=== PATIENT | male | born 1975 | race Caucasian/White ===

== ENCOUNTER 2016-11-06 16:12 | Emergency (ER) | payer MEDICAID ==
[~2016-11-06] VITALS: Ht 185.4 cm; Wt 38.2 kg
[~2016-11-06 16:12] MED LIST: DIVA500T35 PO; FLUP10 PO; TRIH5TAB2 PO
[2016-11-06] MEDS ORDERED: TRIHEXYPHENIDYL HCL 5 MG TABLET PO ONE (19:30)
[2016-11-06] MEDS ORDERED: FluPHENAZine HCL 10 MG TABLET PO ONE (19:30)
[2016-11-06] MEDS ORDERED: FluPHENAZine HCL 5 MG TABLET PO ONE (19:30)
[2016-11-06 19:52] VITALS: BP 118/76
== END 2016-11-06 19:56 | disposition home or self-care (01) ==
LOC: EEVIPCON 16:12 → EMS 16:14
DX: F20.9 Schizophrenia, unspecified (principal); F31.9 Bipolar disorder, unspecified; F41.9 Anxiety disorder, unspecified; F17.210 Nicotine dependence, cigarettes, uncomplicated; Z76.0 Encounter for issue of repeat prescription
CPT/HCPCS: 99283

== ENCOUNTER 2016-11-20 14:08 | Inpatient (IN) | payer MEDICAID ==
[~2016-11-20] VITALS: Ht 185.4 cm; Wt 86.8 kg
[~2016-11-20 14:08] MED LIST changes: -DIVA500T35 PO
[2016-11-20] MEDS ORDERED: HALOPERIDOL 5 MG TABLET PO PRN (17:00)
[2016-11-20] MEDS ORDERED: -PHARMACY VACCINE NOTE- MISC ONE ×2 (18:15)
[2016-11-20] MEDS: TRIHEXYPHENIDYL HCL 2 MG TABLET PO SCH (18:26)
[2016-11-20] MEDS: LORazepam 2 MG TABLET PO PRN (18:26)
[2016-11-20 18:33] VITALS: BP 143/75
[2016-11-20 19:21] VITALS: BP 120/72
[2016-11-20] MEDS: FluPHENAZine HCL 10 MG TABLET PO SCH (20:35)
[2016-11-21 06:43] VITALS: BP 125/83
[2016-11-21 08:16] VITALS: BP 137/69
[2016-11-21 08:46] LABS: BASOPHILS % (AUTO) 0.7 % (0.0-2.0); EOSINOPHILS % (AUTO) 3.3 % (1.0-6.0); HEMATOCRIT 43.7 % (41-53); HEMOGLOBIN 14.1 g/dL (13.5-17.5); LYMPHOCYTES # (AUTO) 1.8 K/uL (1.0-4.8); LYMPHOCYTES % (AUTO) 30.7 % (22.0-44.0); MEAN CORPUSCULAR HEMOGLOBIN 29.4 pg (26.0-34.0); MEAN CORPUSCULAR HGB CONC 32.4 G/dL (31.0-37.0); MEAN CORPUSCULAR VOLUME 91 fL (80-100); MONOCYTES # (AUTO) 0.3 K/uL (0.1-1.0); MONOCYTES % (AUTO) 5.5 % (2.0-9.0); NEUTROPHILS # (AUTO) 3.5 K/uL (1.8-7.7); NEUTROPHILS % (AUTO) 59.8 % (40.0-70.0); PLATELET COUNT (AUTO) 180 K/uL (150-450); RED BLOOD CELL COUNT(AUTO) 4.81 MIL/uL (4.50-5.90); RED CELL DISTRIBUTION WIDTH 13.6 % (11.5-14.5); WHITE BLOOD COUNT (AUTO) 5.9 K/uL (4.5-11.0)
[2016-11-21 09:24] LABS: HEMOGLOBIN A1C 5.4 % (4.5-6.2)
[2016-11-21 09:46] LABS: ALANINE AMINOTRANSFERASE 25 U/L (12-78); ALBUMIN 3.6 g/dL (3.4-5.0); ANION GAP 7 mmol/L (8-16); ASPARTATE AMINOTRANSFERASE 23 U/L (15-37); BILIRUBIN,TOTAL 0.5 mg/dL (0.1-1.0); CALCIUM, TOTAL 8.6 mg/dL (8.8-10.5); CARBON DIOXIDE 30 mmol/L (22-29); CHLORIDE 107 mmol/L (98-107); CHOL/HDL RATIO 2.9 (4.2-7.3); CREATININE 0.99 mg/dL (0.60-1.30); GLOMERULAR FILTR. RATE CALC > 60 mL/min (>60); POTASSIUM 4.6 mmol/L (3.5-5.1); SODIUM SERUM 144 mmol/L (136-145); THYROID STIMULATING HORMONE 0.49 uIU/mL (0.36-3.74); TOTAL PROTEIN, SERUM 6.7 g/dL (6.4-8.2); UREA NITROGEN, BLOOD 18 mg/dL (7-18)
[2016-11-21] MEDS: TRIHEXYPHENIDYL HCL 2 MG TABLET PO SCH ×2 (09:46→16:58)
[2016-11-21] MEDS: LORazepam 2 MG TABLET PO PRN ×2 (09:46→16:58)
[2016-11-21 11:35] LABS: APPEARANCE,URINE CLOUDY (CLEAR)
[2016-11-21 11:36] LABS: ADD UA MICROSCOPIC YES; GLUCOSE, URINE (UA) NEGATIVE (NEGATIVE); KETONES,URINE TRACE mg/dL (NEGATIVE); LEUKOCYTE ESTERASE ,URINE NEGATIVE (NEGATIVE); OCCULT BLOOD,URINE NEGATIVE (NEGATIVE); PH,URINE 5.5 (5.0-8.0); PROTEIN,URINE NEGATIVE (NEGATIVE)
[2016-11-21 11:39] LABS: RBC,URINE None Seen /HPF (0-2); WBC,URINE 0-2 /HPF (0-5)
[2016-11-21 11:41] LABS: AMORPHOUS SEDIMENT,UR Many /LPF (None Seen); CALCIUM OXALATE CRYSTALS,UR Few /LPF (None Seen)
[2016-11-21 16:00] VITALS: BP 124/76
[2016-11-21] MEDS: ZOLPIDEM TARTRATE 10 MG TABLET PO PRN (20:22)
[2016-11-21] MEDS: FluPHENAZine HCL 10 MG TABLET PO SCH (20:22)
[2016-11-22 06:46] VITALS: BP 126/70
[2016-11-22 08:40] VITALS: BP 131/80
[2016-11-22] MEDS: TRIHEXYPHENIDYL HCL 2 MG TABLET PO SCH ×2 (10:05→17:06)
[2016-11-22 16:00] VITALS: BP 125/71
[2016-11-22] MEDS: ZOLPIDEM TARTRATE 10 MG TABLET PO PRN (20:49)
[2016-11-22] MEDS: FluPHENAZine HCL 10 MG TABLET PO SCH (20:49)
[2016-11-22] MEDS: LORazepam 2 MG TABLET PO PRN (20:49)
[2016-11-23 08:30] VITALS: BP 104/64
[2016-11-23] MEDS: TRIHEXYPHENIDYL HCL 2 MG TABLET PO SCH (09:39)
== END 2016-11-23 11:40 | disposition home or self-care (01) | DRG 750 ==
LOC: B3A 16:51 → EDSTATUS 18:01
DX: F25.1 Schizoaffective disorder, depressive type (principal); R45.851 Suicidal ideations; E55.9 Vitamin D deficiency, unspecified; J44.9 Chronic obstructive pulmonary disease, unspecified; K59.00 Constipation, unspecified; F17.210 Nicotine dependence, cigarettes, uncomplicated; Z71.6 Tobacco abuse counseling; Z72.89 Other problems related to lifestyle; Z71.41 Alcohol abuse counseling and surveillance of alcoholic
CPT/HCPCS: 83036; 84439; 84443

== ENCOUNTER 2016-11-27 12:52 | Inpatient (IN) | payer MEDICAID ==
[~2016-11-27 12:52] MED LIST changes: +TRIH5 PO; -TRIH5TAB2 PO
[2016-11-27] MEDS ORDERED: HALOPERIDOL 5 MG TABLET PO PRN (13:30)
[2016-11-27] MEDS ORDERED: ZOLPIDEM TARTRATE 10 MG TABLET PO PRN (13:30)
[2016-11-27 16:13] VITALS: BP 125/69
[2016-11-27] MEDS: FluPHENAZine HCL 10 MG TABLET PO SCH (16:29)
[2016-11-27] MEDS: TRIHEXYPHENIDYL HCL 2 MG TABLET PO SCH (18:04)
[2016-11-27] MEDS ORDERED: LORazepam 2 MG/ML VIAL IM ONE (19:45)
[2016-11-27] MEDS ORDERED: HALOPERIDOL LACTATE 5 MG/ML VIAL IM ONE (19:45)
[2016-11-27] MEDS ORDERED: DiphenhydrAMINE HCL 50 MG/ML VIAL IM ONE (19:45)
[2016-11-27] MEDS: MAG HYDROX/AL HYDROX/SIMETH ES 30 ML SUSPENSION UDCUP PO PRN (20:10)
[2016-11-27 20:23] VITALS: BP 113/65
[2016-11-27] MEDS ORDERED: FluPHENAZine HCL 10 MG TABLET PO SCH (21:00)
[2016-11-27] MEDS ORDERED: TRIHEXYPHENIDYL HCL 2 MG TABLET PO SCH (21:00)
[2016-11-28 07:19] VITALS: BP 118/65
[2016-11-28 08:31] VITALS: BP 112/75
[2016-11-28] MEDS: FluPHENAZine HCL 10 MG TABLET PO SCH ×3 (09:00→17:00)
[2016-11-28] MEDS: TRIHEXYPHENIDYL HCL 2 MG TABLET PO SCH ×2 (09:29→17:00)
[2016-11-28] MEDS ORDERED: ALBUTEROL SULFATE HFA 90 MCG/PUFF 8 GM INHALER IH PRN (10:45)
[2016-11-28] MEDS ORDERED: MAG HYDROX/AL HYDROX/SIMETH ES 30 ML SUSPENSION UDCUP PO PRN (10:45)
[2016-11-28] MEDS ORDERED: BACITRACIN 28.4 GM OINTMENT TP PRN (10:45)
[2016-11-28] MEDS ORDERED: CloNIDine HCL 0.1 MG TABLET PO PRN (10:45)
[2016-11-28] MEDS ORDERED: LOPERAMIDE HCL 2 MG CAPSULE PO PRN (10:45)
[2016-11-28] MEDS ORDERED: MAGNESIUM HYDROXIDE SUSPENSION 30 ML UDCUP PO PRN (10:45)
[2016-11-28] MEDS ORDERED: ACETAMINOPHEN 325 MG TABLET PO PRN (10:45)
[2016-11-28] MEDS ORDERED: ONDANSETRON HCL 4 MG TABLET PO PRN (10:45)
[2016-11-28] MEDS ORDERED: PETROLATUM,WHITE 71 GM JELLY TP PRN (10:45)
[2016-11-28] MEDS ORDERED: BENZOCAINE/MENTHOL LOZENGE MM PRN (10:45)
[2016-11-28] MEDS: IBUPROFEN 600 MG TABLET PO PRN (11:03)
[2016-11-28] MEDS: LORazepam 2 MG TABLET PO PRN (11:04)
[2016-11-28] MEDS: MAG HYDROX/AL HYDROX/SIMETH ES 30 ML SUSPENSION UDCUP PO PRN (11:04)
[2016-11-28] MEDS ORDERED: DiphenhydrAMINE HCL 25 MG CAPSULE PO PRN (18:15)
[2016-11-29 08:22] VITALS: BP 112/73
[2016-11-29] MEDS: FluPHENAZine HCL 10 MG TABLET PO SCH ×2 (09:00→17:00)
[2016-11-29] MEDS: IBUPROFEN 600 MG TABLET PO PRN ×2 (09:19→17:26)
[2016-11-29] MEDS: TRIHEXYPHENIDYL HCL 2 MG TABLET PO SCH ×2 (09:19→17:25)
[2016-11-29] MEDS: LORazepam 2 MG TABLET PO PRN ×3 (09:19→21:32)
[2016-11-29 09:24] VITALS: BP 129/68
[2016-11-29 10:24] VITALS: BP 116/72
[2016-11-30] MEDS: TRIHEXYPHENIDYL HCL 2 MG TABLET PO SCH (08:13)
[2016-11-30 08:20] LABS: BASOPHILS % (AUTO) 0.5 % (0.0-2.0); EOSINOPHILS % (AUTO) 3.2 % (1.0-6.0); HEMATOCRIT 40.6 % (41-53); HEMOGLOBIN 13.2 g/dL (13.5-17.5); LYMPHOCYTES # (AUTO) 1.7 K/uL (1.0-4.8); LYMPHOCYTES % (AUTO) 28.1 % (22.0-44.0); MEAN CORPUSCULAR HEMOGLOBIN 29.6 pg (26.0-34.0); MEAN CORPUSCULAR HGB CONC 32.6 G/dL (31.0-37.0); MEAN CORPUSCULAR VOLUME 91 fL (80-100); MONOCYTES # (AUTO) 0.4 K/uL (0.1-1.0); MONOCYTES % (AUTO) 6.9 % (2.0-9.0); NEUTROPHILS # (AUTO) 3.7 K/uL (1.8-7.7); NEUTROPHILS % (AUTO) 61.3 % (40.0-70.0); PLATELET COUNT (AUTO) 154 K/uL (150-450); RED BLOOD CELL COUNT(AUTO) 4.46 MIL/uL (4.50-5.90); RED CELL DISTRIBUTION WIDTH 13.5 % (11.5-14.5)
[2016-11-30 08:36] LABS: HEMOGLOBIN A1C 5.3 % (4.5-6.2)
[2016-11-30 08:56] LABS: ALANINE AMINOTRANSFERASE 48 U/L (12-78); ALBUMIN 3.3 g/dL (3.4-5.0); ANION GAP 7 mmol/L (8-16); ASPARTATE AMINOTRANSFERASE 34 U/L (15-37); BILIRUBIN,TOTAL 0.3 mg/dL (0.1-1.0); CALCIUM, TOTAL 7.7 mg/dL (8.8-10.5); CARBON DIOXIDE 28 mmol/L (22-29); CHLORIDE 107 mmol/L (98-107); CHOL/HDL RATIO 3.4 (4.2-7.3); CREATININE 0.82 mg/dL (0.60-1.30); GLOMERULAR FILTR. RATE CALC > 60 mL/min (>60); POTASSIUM 4.6 mmol/L (3.5-5.1); SODIUM SERUM 142 mmol/L (136-145); THYROID STIMULATING HORMONE 0.66 uIU/mL (0.36-3.74); TOTAL PROTEIN, SERUM 5.9 g/dL (6.4-8.2); UREA NITROGEN, BLOOD 21 mg/dL (7-18)
[2016-11-30] MEDS: FluPHENAZine HCL 10 MG TABLET PO SCH (09:00)
== END 2016-11-30 14:00 | disposition home or self-care (01) | DRG 750 ==
LOC: B3A 13:24
PROVIDERS: ADMIT Psychiatry & Neurology Psychiatry; ATTEND Psychiatry & Neurology Psychiatry
DX: F20.0 Paranoid schizophrenia (principal); E55.9 Vitamin D deficiency, unspecified; F15.10 Other stimulant abuse, uncomplicated; J44.9 Chronic obstructive pulmonary disease, unspecified; F19.10 Other psychoactive substance abuse, uncomplicated; K59.00 Constipation, unspecified; F17.210 Nicotine dependence, cigarettes, uncomplicated; Z71.6 Tobacco abuse counseling; Z79.899 Other long term (current) drug therapy
CPT/HCPCS: 83036; 84439; 84443; J1200; J1630; J2060

== ENCOUNTER 2016-12-05 20:14 | Inpatient (IN) | payer MEDICAID ==
[~2016-12-05] VITALS: Ht 185.4 cm; Wt 84.3 kg
[~2016-12-05 20:14] MED LIST changes: -TRIH5 PO; +TRIH5TAB2 PO
[2016-12-05] MEDS ORDERED: HALOPERIDOL 5 MG TABLET PO PRN (20:45)
[2016-12-05 21:00] VITALS: BP 123/68
[2016-12-05 21:15] VITALS: BP 119/87
[2016-12-05] MEDS ORDERED: IBUPROFEN 600 MG TABLET PO PRN (21:30)
[2016-12-05] MEDS: TRIHEXYPHENIDYL HCL 2 MG TABLET PO SCH (21:35)
[2016-12-05] MEDS: FluPHENAZine HCL 10 MG TABLET PO SCH (21:35)
[2016-12-05] MEDS: ZOLPIDEM TARTRATE 10 MG TABLET PO PRN (21:36)
[2016-12-05] MEDS: LORazepam 2 MG TABLET PO PRN (21:36)
[2016-12-06 02:36] VITALS: BP 112/83
[2016-12-06] MEDS ORDERED: BACITRACIN 28.4 GM OINTMENT TP PRN (08:00)
[2016-12-06] MEDS ORDERED: ALBUTEROL SULFATE HFA 90 MCG/PUFF 8 GM INHALER IH PRN (08:00)
[2016-12-06] MEDS ORDERED: ONDANSETRON HCL 4 MG TABLET PO PRN (08:00)
[2016-12-06] MEDS ORDERED: LOPERAMIDE HCL 2 MG CAPSULE PO PRN (08:00)
[2016-12-06] MEDS ORDERED: BENZOCAINE/MENTHOL LOZENGE MM PRN (08:00)
[2016-12-06] MEDS ORDERED: MAG HYDROX/AL HYDROX/SIMETH ES 30 ML SUSPENSION UDCUP PO PRN (08:00)
[2016-12-06] MEDS ORDERED: ACETAMINOPHEN 325 MG TABLET PO PRN (08:00)
[2016-12-06] MEDS ORDERED: CloNIDine HCL 0.1 MG TABLET PO PRN (08:00)
[2016-12-06] MEDS ORDERED: PETROLATUM,WHITE 71 GM JELLY TP PRN (08:00)
[2016-12-06] MEDS ORDERED: MAGNESIUM HYDROXIDE SUSPENSION 30 ML UDCUP PO PRN (08:00)
[2016-12-06] MEDS ORDERED: TraMADol HCL 50 MG TABLET PO PRN (08:15)
[2016-12-06 08:31] VITALS: BP 122/81
[2016-12-06 08:39] LABS: APPEARANCE,URINE TURBID (CLEAR); GLUCOSE, URINE (UA) NEGATIVE (NEGATIVE); KETONES,URINE NEGATIVE (NEGATIVE); LEUKOCYTE ESTERASE ,URINE TRACE (NEGATIVE); OCCULT BLOOD,URINE NEGATIVE (NEGATIVE); PH,URINE 5.5 (5.0-8.0); PROTEIN,URINE NEGATIVE (NEGATIVE)
[2016-12-06 08:51] LABS: ADD UA MICROSCOPIC YES
[2016-12-06] MEDS: SULFAMETHOX/TRIMETH DS 800-160 MG/TABLET PO SCH ×2 (08:51→16:17)
[2016-12-06] MEDS: LORazepam 2 MG TABLET PO PRN ×2 (08:52→16:17)
[2016-12-06] MEDS: TRIHEXYPHENIDYL HCL 2 MG TABLET PO SCH ×2 (08:52→16:17)
[2016-12-06] MEDS: FluPHENAZine HCL 10 MG TABLET PO SCH ×2 (08:52→16:17)
[2016-12-06 08:55] LABS: AMORPHOUS SEDIMENT,UR Many /LPF (None Seen); RBC,URINE None Seen /HPF (0-2); SQUAMOUS EPITHELIAL CELL,UR Rare /LPF (None Seen); WBC,URINE 0-2 /HPF (0-5)
[2016-12-06] MEDS: CHOLECALCIFEROL (VIT D3) 1,000 UNITS TABLET PO SCH (08:57)
[2016-12-06] MEDS ORDERED: CEPHALEXIN MONOHYDRATE 500 MG CAPSULE PO SCH ×2 (09:00)
[2016-12-06] MEDS: CEPHALEXIN MONOHYDRATE 500 MG CAPSULE PO SCH ×2 (12:26→16:17)
[2016-12-06] MEDS: IBUPROFEN 600 MG TABLET PO PRN (12:28)
[2016-12-07 08:23] VITALS: BP 113/72
[2016-12-07 08:51] LABS: BASOPHILS % (AUTO) 0.6 % (0.0-2.0); HEMATOCRIT 40.9 % (41-53); HEMOGLOBIN 13.2 g/dL (13.5-17.5); LYMPHOCYTES # (AUTO) 1.7 K/uL (1.0-4.8); LYMPHOCYTES % (AUTO) 26.4 % (22.0-44.0); MEAN CORPUSCULAR HEMOGLOBIN 29.5 pg (26.0-34.0); MEAN CORPUSCULAR HGB CONC 32.2 G/dL (31.0-37.0); MEAN CORPUSCULAR VOLUME 91 fL (80-100); MONOCYTES # (AUTO) 0.3 K/uL (0.1-1.0); MONOCYTES % (AUTO) 5.5 % (2.0-9.0); NEUTROPHILS # (AUTO) 4.1 K/uL (1.8-7.7); NEUTROPHILS % (AUTO) 64.5 % (40.0-70.0); PLATELET COUNT (AUTO) 165 K/uL (150-450); RED BLOOD CELL COUNT(AUTO) 4.47 MIL/uL (4.50-5.90); RED CELL DISTRIBUTION WIDTH 12.7 % (11.5-14.5); WHITE BLOOD COUNT (AUTO) 6.3 K/uL (4.5-11.0)
[2016-12-07] MEDS: TRIHEXYPHENIDYL HCL 2 MG TABLET PO SCH ×2 (09:18→17:06)
[2016-12-07] MEDS: CEPHALEXIN MONOHYDRATE 500 MG CAPSULE PO SCH ×3 (09:18→16:39)
[2016-12-07] MEDS: FluPHENAZine HCL 10 MG TABLET PO SCH ×2 (09:18→16:39)
[2016-12-07] MEDS: IBUPROFEN 600 MG TABLET PO PRN (09:18)
[2016-12-07] MEDS: SULFAMETHOX/TRIMETH DS 800-160 MG/TABLET PO SCH ×2 (09:18→16:39)
[2016-12-07] MEDS: LORazepam 2 MG TABLET PO PRN ×2 (09:18→18:26)
[2016-12-07] MEDS: CHOLECALCIFEROL (VIT D3) 1,000 UNITS TABLET PO SCH (09:18)
[2016-12-07 09:42] LABS: HEMOGLOBIN A1C 5.4 % (4.5-6.2)
[2016-12-07 09:55] LABS: ALANINE AMINOTRANSFERASE 28 U/L (12-78); ALBUMIN 3.1 g/dL (3.4-5.0); ANION GAP 7 mmol/L (8-16); ASPARTATE AMINOTRANSFERASE 19 U/L (15-37); BILIRUBIN,TOTAL 0.3 mg/dL (0.1-1.0); CALCIUM, TOTAL 7.7 mg/dL (8.8-10.5); CARBON DIOXIDE 27 mmol/L (22-29); CHLORIDE 109 mmol/L (98-107); CHOL/HDL RATIO 3.4 (4.2-7.3); CREATININE 1.02 mg/dL (0.60-1.30); GLOMERULAR FILTR. RATE CALC > 60 mL/min (>60); POTASSIUM 3.9 mmol/L (3.5-5.1); SODIUM SERUM 143 mmol/L (136-145); THYROID STIMULATING HORMONE 0.27 uIU/mL (0.36-3.74); TOTAL PROTEIN, SERUM 5.8 g/dL (6.4-8.2); UREA NITROGEN, BLOOD 15 mg/dL (7-18)
[2016-12-07 16:00] VITALS: BP 137/71
[2016-12-07] MEDS: ZOLPIDEM TARTRATE 10 MG TABLET PO PRN (20:14)
[2016-12-08] MEDS: CEPHALEXIN MONOHYDRATE 500 MG CAPSULE PO SCH ×3 (08:56→16:41)
[2016-12-08] MEDS: FluPHENAZine HCL 10 MG TABLET PO SCH ×2 (08:56→16:41)
[2016-12-08] MEDS: CHOLECALCIFEROL (VIT D3) 1,000 UNITS TABLET PO SCH (08:56)
[2016-12-08] MEDS: TRIHEXYPHENIDYL HCL 2 MG TABLET PO SCH ×2 (08:56→16:41)
[2016-12-08] MEDS: SULFAMETHOX/TRIMETH DS 800-160 MG/TABLET PO SCH ×2 (08:56→16:41)
[2016-12-08] MEDS: LORazepam 2 MG TABLET PO PRN ×2 (08:56→16:41)
[2016-12-09 06:10] VITALS: BP 129/68
[2016-12-09] MEDS: CHOLECALCIFEROL (VIT D3) 1,000 UNITS TABLET PO SCH (09:14)
[2016-12-09] MEDS: SULFAMETHOX/TRIMETH DS 800-160 MG/TABLET PO SCH ×2 (09:14→17:15)
[2016-12-09] MEDS: LORazepam 2 MG TABLET PO PRN ×3 (09:14→21:16)
[2016-12-09] MEDS: FluPHENAZine HCL 10 MG TABLET PO SCH ×2 (09:14→17:14)
[2016-12-09] MEDS: CEPHALEXIN MONOHYDRATE 500 MG CAPSULE PO SCH ×3 (09:15→17:15)
[2016-12-09] MEDS: TRIHEXYPHENIDYL HCL 2 MG TABLET PO SCH ×2 (09:15→17:14)
[2016-12-09 16:04] VITALS: BP 134/87
[2016-12-09] MEDS: IBUPROFEN 600 MG TABLET PO PRN (17:15)
[2016-12-09] MEDS: ZOLPIDEM TARTRATE 10 MG TABLET PO PRN (21:16)
[2016-12-10] MEDS: CEPHALEXIN MONOHYDRATE 500 MG CAPSULE PO SCH ×2 (08:52→12:45)
[2016-12-10] MEDS: CHOLECALCIFEROL (VIT D3) 1,000 UNITS TABLET PO SCH (08:52)
[2016-12-10] MEDS: FluPHENAZine HCL 10 MG TABLET PO SCH (08:52)
[2016-12-10] MEDS: SULFAMETHOX/TRIMETH DS 800-160 MG/TABLET PO SCH (08:52)
[2016-12-10] MEDS: TRIHEXYPHENIDYL HCL 2 MG TABLET PO SCH (08:52)
[2016-12-10 09:24] VITALS: BP 135/81
[2016-12-10] MEDS: IBUPROFEN 600 MG TABLET PO PRN (09:27)
[2016-12-10] MEDS ORDERED: VITAD1000 PO (10:36)
[2016-12-10] MEDS ORDERED: SULF1TAB42 PO (10:37)
[2016-12-10] MEDS ORDERED: CEPH500 PO (10:37)
== END 2016-12-10 12:47 | disposition home or self-care (01) | DRG 750 ==
LOC: B3A 20:40 → EDSTATUS 20:44
PROVIDERS: ADMIT Psychiatry & Neurology Psychiatry; ATTEND Psychiatry & Neurology Psychiatry
DX: F20.0 Paranoid schizophrenia (principal); E55.9 Vitamin D deficiency, unspecified; F25.9 Schizoaffective disorder, unspecified; J44.9 Chronic obstructive pulmonary disease, unspecified; K59.00 Constipation, unspecified; F15.90 Other stimulant use, unspecified, uncomplicated; F17.200 Nicotine dependence, unspecified, uncomplicated; L03.113 Cellulitis of right upper limb; K21.9 Gastro-esophageal reflux disease without esophagitis; Z71.6 Tobacco abuse counseling; Z71.51 Drug abuse counseling and surveillance of drug abuser
CPT/HCPCS: 80307; 83036; 84439; 84443; 86592; 87081

== ENCOUNTER 2016-12-19 14:49 | Emergency (ER) | payer MEDICAID ==
[~2016-12-19] VITALS: Ht 182.9 cm; Wt 81.8 kg
[~2016-12-19 14:49] MED LIST changes: +CEPH500 PO; +SULF1TAB42 PO; +VITAD1000 PO
[2016-12-19] MEDS ORDERED: DIPH25 PO (15:16)
[2016-12-19] MEDS ORDERED: TRIHEXYPHENIDYL HCL 5 MG TABLET PO ONE (16:45)
[2016-12-19] MEDS ORDERED: FluPHENAZine HCL 10 MG TABLET PO ONE (16:45)
[2016-12-19 17:19] VITALS: BP 128/68
== END 2016-12-19 17:20 | disposition home or self-care (01) ==
LOC: EMS 14:51
DX: Z76.0 Encounter for issue of repeat prescription (principal); F20.9 Schizophrenia, unspecified; F41.9 Anxiety disorder, unspecified; F31.9 Bipolar disorder, unspecified; F17.210 Nicotine dependence, cigarettes, uncomplicated
CPT/HCPCS: 99284

== ENCOUNTER 2017-01-22 02:42 | Inpatient (IN) | payer SELFPAY ==
[~2017-01-22] VITALS: Ht 185.4 cm; Wt 82.0 kg
[~2017-01-22 02:42] MED LIST changes: -CEPH500 PO; +DIPH25 PO; -SULF1TAB42 PO; -VITAD1000 PO
[2017-01-22 03:30] VITALS: BP 118/64
[2017-01-22 06:12] LABS: BASOPHILS # (AUTO) 0.06 K/uL (0.00-0.20); BASOPHILS % (AUTO) 0.9 % (0.0-2.0); EOSINOPHILS # (AUTO) 0.21 K/uL (0.00-0.70); EOSINOPHILS % (AUTO) 2.84 % (1.0-6.0); HEMATOCRIT 44.1 % (41-53); HEMOGLOBIN 14.4 g/dL (13.5-17.5); LYMPHOCYTES % (AUTO) 27.6 % (22.0-44.0); MEAN CORPUSCULAR HEMOGLOBIN 29.7 pg (26.0-34.0); MEAN CORPUSCULAR HGB CONC 32.6 G/dL (31.0-37.0); MEAN CORPUSCULAR VOLUME 91 fL (80-100); MONOCYTES # (AUTO) 0.6 K/uL (0.1-1.0); MONOCYTES % (AUTO) 7.9 % (2.0-9.0); NEUTROPHILS # (AUTO) 4.5 K/uL (1.8-7.7); NEUTROPHILS % (AUTO) 60.8 % (40.0-70.0); PLATELET COUNT (AUTO) 168 K/uL (150-450); RED BLOOD CELL COUNT(AUTO) 4.84 MIL/uL (4.50-5.90); RED CELL DISTRIBUTION WIDTH 13.2 % (11.5-14.5); WHITE BLOOD COUNT (AUTO) 7.4 K/uL (4.5-11.0)
[2017-01-22 06:22] LABS: ANION GAP 4 mmol/L (8-16); CALCIUM, TOTAL 8.9 mg/dL (8.8-10.5); CARBON DIOXIDE 34 mmol/L (22-29); CHLORIDE 104 mmol/L (98-107); GLOMERULAR FILTR. RATE CALC > 60 mL/min (>60); POTASSIUM 4.8 mmol/L (3.5-5.1); SODIUM SERUM 142 mmol/L (136-145); UREA NITROGEN, BLOOD 13 mg/dL (7-18)
[2017-01-22 06:28] LABS: ALANINE AMINOTRANSFERASE 25 U/L (12-78); ASPARTATE AMINOTRANSFERASE 19 U/L (15-37); BILIRUBIN,TOTAL 0.3 mg/dL (0.1-1.0); TOTAL PROTEIN, SERUM 7.2 g/dL (6.4-8.2)
[2017-01-22 08:02] LABS: APPEARANCE,URINE CLEAR (CLEAR); GLUCOSE, URINE (UA) NEGATIVE (NEGATIVE); KETONES,URINE NEGATIVE (NEGATIVE); LEUKOCYTE ESTERASE ,URINE NEGATIVE (NEGATIVE); OCCULT BLOOD,URINE NEGATIVE (NEGATIVE); PH,URINE 6.5 (5.0-8.0); PROTEIN,URINE NEGATIVE (NEGATIVE)
[2017-01-22 08:10] LABS: ADD UA MICROSCOPIC NO
[2017-01-22 15:12] VITALS: BP 130/70
[2017-01-22 16:00] VITALS: BP 134/77
[2017-01-22] MEDS ORDERED: LORazepam 2 MG TABLET PO PRN (18:30)
[2017-01-22] MEDS ORDERED: HALOPERIDOL 5 MG TABLET PO PRN (18:30)
[2017-01-22] MEDS ORDERED: ZOLPIDEM TARTRATE 10 MG TABLET PO PRN (18:30)
[2017-01-22] MEDS ORDERED: LORazepam 2 MG/ML VIAL ONE (18:31)
[2017-01-22] MEDS ORDERED: FluPHENAZine HCL 2.5 MG/ML INJ IM ONE ×2 (18:31→18:45)
[2017-01-22] MEDS ORDERED: DiphenhydrAMINE HCL 50 MG/ML VIAL ONE (18:31)
[2017-01-22] MEDS ORDERED: LORazepam 2 MG/ML VIAL IM ONE (18:45)
[2017-01-22] MEDS ORDERED: DiphenhydrAMINE HCL 50 MG/ML VIAL IM ONE (18:45)
[2017-01-23] MEDS ORDERED: ONDANSETRON HCL 4 MG TABLET PO PRN (08:15)
[2017-01-23] MEDS ORDERED: ALBUTEROL SULFATE HFA 90 MCG/PUFF 8 GM INHALER IH PRN (08:15)
[2017-01-23] MEDS ORDERED: IBUPROFEN 600 MG TABLET PO PRN (08:15)
[2017-01-23] MEDS ORDERED: BACITRACIN 28.4 GM OINTMENT TP PRN (08:15)
[2017-01-23] MEDS ORDERED: BENZOCAINE/MENTHOL LOZENGE MM PRN (08:15)
[2017-01-23] MEDS ORDERED: LOPERAMIDE HCL 2 MG CAPSULE PO PRN (08:15)
[2017-01-23] MEDS ORDERED: PETROLATUM,WHITE 71 GM JELLY TP PRN (08:15)
[2017-01-23] MEDS ORDERED: ACETAMINOPHEN 325 MG TABLET PO PRN (08:15)
[2017-01-23] MEDS ORDERED: MAG HYDROX/AL HYDROX/SIMETH ES 30 ML SUSPENSION UDCUP PO PRN (08:15)
[2017-01-23] MEDS ORDERED: MAGNESIUM HYDROXIDE SUSPENSION 30 ML UDCUP PO PRN (08:15)
[2017-01-23] MEDS ORDERED: CloNIDine HCL 0.1 MG TABLET PO PRN (08:15)
[2017-01-23] MEDS ORDERED: NICOTINE 21 MG/24 HOUR PATCH TD SCH (09:00)
[2017-01-23] MEDS ORDERED: CHOLECALCIFEROL (VIT D3) 1,000 UNITS TABLET PO SCH (09:00)
[2017-01-23 09:05] VITALS: BP 117/75
[2017-01-23] MEDS: FluPHENAZine HCL 10 MG TABLET PO SCH ×2 (09:16→16:57)
[2017-01-23] MEDS: TRIHEXYPHENIDYL HCL 2 MG TABLET PO SCH ×2 (09:17→16:57)
[2017-01-23 16:02] VITALS: BP 126/71
[2017-01-23] MEDS ORDERED: FLUP10 PO (17:32)
[2017-01-23] MEDS ORDERED: TRIH2TAB3 PO (17:32)
[2017-01-23] MEDS ORDERED: VITAD1000 PO (17:33)
== END 2017-01-23 18:40 | disposition home or self-care (01) | DRG 885 ==
LOC: BV PSY EVL 04:30 → B3A 13:04
PROVIDERS: ADMIT Psychiatry & Neurology Psychiatry; ATTEND Psychiatry & Neurology Psychiatry
DX: F20.0 Paranoid schizophrenia (principal); R45.851 Suicidal ideations; F31.9 Bipolar disorder, unspecified; F41.9 Anxiety disorder, unspecified; J44.9 Chronic obstructive pulmonary disease, unspecified; F17.210 Nicotine dependence, cigarettes, uncomplicated; K59.00 Constipation, unspecified; E55.9 Vitamin D deficiency, unspecified; F15.10 Other stimulant abuse, uncomplicated; R51 Headache; Z79.899 Other long term (current) drug therapy; Z56.0 Unemployment, unspecified; Z71.6 Tobacco abuse counseling; Z71.51 Drug abuse counseling and surveillance of drug abuser; Z91.14 Patient's other noncompliance with medication regimen
CPT/HCPCS: 99285; G0480; J1200; J2060; J3490

== ENCOUNTER 2017-01-28 22:28 | Inpatient (IN) | payer MEDICAID ==
[~2017-01-28] VITALS: Ht 182.9 cm; Wt 82.8 kg
[~2017-01-28 22:28] MED LIST changes: -DIPH25 PO; +TRIH2TAB3 PO; -TRIH5TAB2 PO; +VITAD1000 PO
[2017-01-29 03:56] VITALS: BP 146/91
[2017-01-29] MEDS ORDERED: ZOLPIDEM TARTRATE 10 MG TABLET PO PRN (04:15)
[2017-01-29] MEDS: HALOPERIDOL 5 MG TABLET PO PRN ×2 (05:26→13:06)
[2017-01-29] MEDS: LORazepam 2 MG TABLET PO PRN ×3 (05:26→20:20)
[2017-01-29 05:45] VITALS: BP 141/105
[2017-01-29] MEDS ORDERED: MAG HYDROX/AL HYDROX/SIMETH ES 30 ML SUSPENSION UDCUP PO PRN (08:00)
[2017-01-29] MEDS ORDERED: BACITRACIN 28.4 GM OINTMENT TP PRN (08:00)
[2017-01-29] MEDS ORDERED: ONDANSETRON HCL 4 MG TABLET PO PRN (08:00)
[2017-01-29] MEDS ORDERED: MAGNESIUM HYDROXIDE SUSPENSION 30 ML UDCUP PO PRN (08:00)
[2017-01-29] MEDS ORDERED: ACETAMINOPHEN 325 MG TABLET PO PRN (08:00)
[2017-01-29] MEDS ORDERED: LOPERAMIDE HCL 2 MG CAPSULE PO PRN (08:00)
[2017-01-29] MEDS ORDERED: BENZOCAINE/MENTHOL LOZENGE MM PRN (08:00)
[2017-01-29] MEDS ORDERED: PETROLATUM,WHITE 71 GM JELLY TP PRN (08:00)
[2017-01-29] MEDS ORDERED: IBUPROFEN 600 MG TABLET PO PRN (08:00)
[2017-01-29] MEDS ORDERED: ALBUTEROL SULFATE HFA 90 MCG/PUFF 8 GM INHALER IH PRN (08:00)
[2017-01-29] MEDS ORDERED: CloNIDine HCL 0.1 MG TABLET PO PRN (08:00)
[2017-01-29 08:16] VITALS: BP 105/63
[2017-01-29 08:35] LABS: APPEARANCE,URINE CLEAR (CLEAR); GLUCOSE, URINE (UA) NEGATIVE (NEGATIVE); KETONES,URINE NEGATIVE (NEGATIVE); LEUKOCYTE ESTERASE ,URINE NEGATIVE (NEGATIVE); OCCULT BLOOD,URINE NEGATIVE (NEGATIVE); PH,URINE 7.5 (5.0-8.0); PROTEIN,URINE NEGATIVE (NEGATIVE)
[2017-01-29 08:37] LABS: ADD UA MICROSCOPIC NO
[2017-01-29] MEDS: TERBINAFINE HCL 1% 30 GM CREAM TP SCH ×2 (09:00→12:34)
[2017-01-29] MEDS: AMOXICILLIN TRIHYDRATE 500 MG CAPSULE PO SCH ×3 (09:00→16:13)
[2017-01-29] MEDS: OMEPRAZOLE 20 MG CAPSULE PO SCH (09:28)
[2017-01-29] MEDS: DOCUSATE SODIUM 100 MG CAPSULE PO SCH (09:28)
[2017-01-29 16:00] VITALS: BP 123/64
[2017-01-29] MEDS: TRIHEXYPHENIDYL HCL 5 MG TABLET PO SCH (18:36)
[2017-01-29] MEDS: FluPHENAZine HCL 10 MG TABLET PO SCH (18:36)
[2017-01-30 05:55] VITALS: BP 110/60
[2017-01-30] MEDS ORDERED: AMOX500C2 PO (07:50)
[2017-01-30] MEDS ORDERED: DSS100 PO (07:50)
[2017-01-30] MEDS ORDERED: OMEP20 PO (07:50)
[2017-01-30] MEDS ORDERED: TRIH5TAB2 PO (07:52)
[2017-01-30] MEDS: DOCUSATE SODIUM 100 MG CAPSULE PO SCH (08:19)
[2017-01-30] MEDS: TRIHEXYPHENIDYL HCL 5 MG TABLET PO SCH (08:19)
[2017-01-30] MEDS: OMEPRAZOLE 20 MG CAPSULE PO SCH (08:19)
[2017-01-30] MEDS: FluPHENAZine HCL 10 MG TABLET PO SCH (08:19)
[2017-01-30] MEDS: TERBINAFINE HCL 1% 30 GM CREAM TP SCH (08:19)
[2017-01-30] MEDS: LORazepam 2 MG TABLET PO PRN (08:19)
[2017-01-30] MEDS: AMOXICILLIN TRIHYDRATE 500 MG CAPSULE PO SCH (08:19)
[2017-01-30] MEDS: HALOPERIDOL 5 MG TABLET PO PRN (08:20)
[2017-01-30] MEDS ORDERED: TRIHEXYPHENIDYL HCL 5 MG TABLET PO SCH (09:00)
[2017-01-30] MEDS ORDERED: FluPHENAZine HCL 10 MG TABLET PO SCH (09:00)
== END 2017-01-30 11:30 | disposition home or self-care (01) | DRG 885 ==
LOC: B3A 01-29 04:25
PROVIDERS: ADMIT Psychiatry & Neurology Psychiatry; ATTEND Psychiatry & Neurology Psychiatry
DX: F25.9 Schizoaffective disorder, unspecified (principal); J44.9 Chronic obstructive pulmonary disease, unspecified; K21.9 Gastro-esophageal reflux disease without esophagitis; F17.200 Nicotine dependence, unspecified, uncomplicated; F15.10 Other stimulant abuse, uncomplicated; F12.90 Cannabis use, unspecified, uncomplicated; G47.00 Insomnia, unspecified; J02.9 Acute pharyngitis, unspecified; B35.3 Tinea pedis; K59.00 Constipation, unspecified; Z71.6 Tobacco abuse counseling; Z71.51 Drug abuse counseling and surveillance of drug abuser; Z56.0 Unemployment, unspecified; Z72.89 Other problems related to lifestyle; Z79.2 Long term (current) use of antibiotics; Z79.899 Other long term (current) drug therapy
CPT/HCPCS: 87081

== ENCOUNTER 2017-02-02 23:53 | Emergency (ER) | payer SELFPAY ==
[~2017-02-02] VITALS: Ht 185.4 cm; Wt 81.8 kg
[~2017-02-02 23:53] MED LIST changes: +AMOX500C2 PO; +OMEP20 PO; -TRIH2TAB3 PO; +TRIH5TAB2 PO; -VITAD1000 PO
[2017-02-03 03:46] VITALS: BP 132/76
== END 2017-02-03 03:58 | disposition home or self-care (01) ==
LOC: EMS 23:56
DX: R44.0 Auditory hallucinations (principal); F20.9 Schizophrenia, unspecified; F31.9 Bipolar disorder, unspecified; F41.9 Anxiety disorder, unspecified; J44.9 Chronic obstructive pulmonary disease, unspecified; F17.210 Nicotine dependence, cigarettes, uncomplicated
CPT/HCPCS: 99284; 99406

== ENCOUNTER 2017-02-07 22:32 | Inpatient (IN) | payer MEDICAID ==
[~2017-02-07] VITALS: Ht 185.4 cm; Wt 79.4 kg
[~2017-02-07 22:32] MED LIST changes: -AMOX500C2 PO
[2017-02-08] MEDS: LORazepam 2 MG TABLET PO PRN ×3 (04:02→16:06)
[2017-02-08 05:29] VITALS: BP 124/72
[2017-02-08 08:09] VITALS: BP 107/70
[2017-02-08] MEDS ORDERED: ONDANSETRON HCL 4 MG TABLET PO PRN (09:15)
[2017-02-08] MEDS ORDERED: PETROLATUM,WHITE 71 GM JELLY TP PRN (09:15)
[2017-02-08] MEDS ORDERED: BACITRACIN 28.4 GM OINTMENT TP PRN (09:15)
[2017-02-08] MEDS ORDERED: ACETAMINOPHEN 325 MG TABLET PO PRN (09:15)
[2017-02-08] MEDS ORDERED: MAGNESIUM HYDROXIDE SUSPENSION 30 ML UDCUP PO PRN (09:15)
[2017-02-08] MEDS ORDERED: BENZOCAINE/MENTHOL LOZENGE MM PRN (09:15)
[2017-02-08] MEDS ORDERED: ALBUTEROL SULFATE HFA 90 MCG/PUFF 8 GM INHALER IH PRN (09:15)
[2017-02-08] MEDS ORDERED: LOPERAMIDE HCL 2 MG CAPSULE PO PRN (09:15)
[2017-02-08] MEDS ORDERED: CloNIDine HCL 0.1 MG TABLET PO PRN (09:15)
[2017-02-08] MEDS ORDERED: MAG HYDROX/AL HYDROX/SIMETH ES 30 ML SUSPENSION UDCUP PO PRN (09:15)
[2017-02-08] MEDS: CHOLECALCIFEROL (VIT D3) 1,000 UNITS TABLET PO SCH (09:51)
[2017-02-08] MEDS: HALOPERIDOL 5 MG TABLET PO PRN (09:52)
[2017-02-08 16:00] VITALS: BP 121/68
[2017-02-08] MEDS: TRIHEXYPHENIDYL HCL 5 MG TABLET PO SCH (16:06)
[2017-02-08] MEDS: FluPHENAZine HCL 10 MG TABLET PO SCH (16:06)
[2017-02-08] MEDS: IBUPROFEN 600 MG TABLET PO PRN (16:07)
[2017-02-09 08:30] VITALS: BP 103/67
[2017-02-09] MEDS: NICOTINE 21 MG/24 HOUR PATCH TD SCH (09:40)
[2017-02-09] MEDS: CHOLECALCIFEROL (VIT D3) 1,000 UNITS TABLET PO SCH (09:41)
[2017-02-09] MEDS: FluPHENAZine HCL 10 MG TABLET PO SCH ×2 (09:41→17:04)
[2017-02-09] MEDS: TRIHEXYPHENIDYL HCL 5 MG TABLET PO SCH ×2 (09:41→17:04)
[2017-02-09] MEDS: LORazepam 2 MG TABLET PO PRN ×3 (09:41→22:40)
[2017-02-09] MEDS: HALOPERIDOL 5 MG TABLET PO PRN (13:31)
[2017-02-09] MEDS: IBUPROFEN 600 MG TABLET PO PRN (13:32)
[2017-02-09 13:36] VITALS: BP 108/73
[2017-02-09 16:00] VITALS: BP 116/69
[2017-02-09] MEDS: ZOLPIDEM TARTRATE 10 MG TABLET PO PRN (22:40)
[2017-02-10 08:24] VITALS: BP 111/68
[2017-02-10] MEDS: LORazepam 2 MG TABLET PO PRN (09:27)
[2017-02-10] MEDS: FluPHENAZine HCL 10 MG TABLET PO SCH ×2 (09:27→16:06)
[2017-02-10] MEDS: NICOTINE 21 MG/24 HOUR PATCH TD SCH (09:28)
[2017-02-10] MEDS: TRIHEXYPHENIDYL HCL 5 MG TABLET PO SCH ×2 (09:31→16:06)
[2017-02-10] MEDS: HALOPERIDOL 5 MG TABLET PO PRN (16:06)
[2017-02-10 16:08] VITALS: BP 115/73
[2017-02-10] MEDS: IBUPROFEN 600 MG TABLET PO PRN (16:10)
[2017-02-10] MEDS: ZOLPIDEM TARTRATE 10 MG TABLET PO PRN (20:22)
[2017-02-11 08:31] VITALS: BP 108/65
[2017-02-11] MEDS: FluPHENAZine HCL 10 MG TABLET PO SCH ×2 (08:54→16:30)
[2017-02-11] MEDS: CHOLECALCIFEROL (VIT D3) 1,000 UNITS TABLET PO SCH (08:54)
[2017-02-11] MEDS: TRIHEXYPHENIDYL HCL 5 MG TABLET PO SCH ×2 (08:54→16:30)
[2017-02-11] MEDS: LORazepam 2 MG TABLET PO PRN ×3 (08:55→20:33)
[2017-02-11] MEDS: NICOTINE 21 MG/24 HOUR PATCH TD SCH (08:57)
[2017-02-11] MEDS: IBUPROFEN 600 MG TABLET PO PRN (13:45)
[2017-02-11 16:15] VITALS: BP 123/69
[2017-02-11] MEDS: ZOLPIDEM TARTRATE 10 MG TABLET PO PRN (20:33)
[2017-02-12] MEDS: CHOLECALCIFEROL (VIT D3) 1,000 UNITS TABLET PO SCH (08:43)
[2017-02-12] MEDS: TRIHEXYPHENIDYL HCL 5 MG TABLET PO SCH (08:44)
[2017-02-12] MEDS: FluPHENAZine HCL 10 MG TABLET PO SCH (08:44)
[2017-02-12] MEDS: NICOTINE 21 MG/24 HOUR PATCH TD SCH (08:44)
[2017-02-12] MEDS: LORazepam 2 MG TABLET PO PRN (10:42)
[2017-02-12] MEDS: IBUPROFEN 600 MG TABLET PO PRN (10:42)
[2017-02-12] MEDS ORDERED: VITAD1000 PO (12:35)
== END 2017-02-12 14:05 | disposition home or self-care (01) | DRG 750 ==
LOC: EDSTATUS 23:41 → B3A 02-08 02:58
PROVIDERS: ADMIT Psychiatry & Neurology Psychiatry; ATTEND Psychiatry & Neurology Psychiatry
DX: F20.0 Paranoid schizophrenia (principal); R45.851 Suicidal ideations; E55.9 Vitamin D deficiency, unspecified; J44.9 Chronic obstructive pulmonary disease, unspecified; K21.9 Gastro-esophageal reflux disease without esophagitis; K59.00 Constipation, unspecified; Z72.0 Tobacco use; G47.00 Insomnia, unspecified; F15.10 Other stimulant abuse, uncomplicated
CPT/HCPCS: 87081

== ENCOUNTER 2017-03-04 01:15 | Emergency (ER) | payer MEDICAID ==
[~2017-03-04] VITALS: Ht 188 cm; Wt 100.0 kg
[~2017-03-04 01:15] MED LIST changes: -OMEP20 PO; +VITAD1000 PO
[2017-03-04] MEDS ORDERED: DIPH50CA4 PO (01:27)
[2017-03-04] MEDS ORDERED: FluPHENAZine HCL 5 MG TABLET PO ONE (03:15)
[2017-03-04] MEDS ORDERED: TRIHEXYPHENIDYL HCL 5 MG TABLET PO ONE (03:15)
[2017-03-04] MEDS ORDERED: DiphenhydrAMINE HCL 25 MG CAPSULE PO ONE (03:15)
[2017-03-04 04:25] VITALS: BP 119/76
== END 2017-03-04 04:22 | disposition home or self-care (01) ==
LOC: EMS 01:16
DX: F25.9 Schizoaffective disorder, unspecified (principal); F15.10 Other stimulant abuse, uncomplicated; F41.9 Anxiety disorder, unspecified; F31.9 Bipolar disorder, unspecified; J44.9 Chronic obstructive pulmonary disease, unspecified; F17.210 Nicotine dependence, cigarettes, uncomplicated
CPT/HCPCS: 99284; 99406

== ENCOUNTER 2017-03-06 18:10 | Inpatient (IN) | payer MEDICAID ==
[~2017-03-06] VITALS: Ht 185.4 cm; Wt 80.3 kg
[~2017-03-06 18:10] MED LIST changes: +DIPH50CA4 PO; -VITAD1000 PO
[2017-03-06] MEDS ORDERED: HALOPERIDOL LACTATE 5 MG/ML VIAL IM ONE (19:45)
[2017-03-06] MEDS ORDERED: DiphenhydrAMINE HCL 50 MG/ML VIAL IM ONE (19:45)
[2017-03-06] MEDS ORDERED: LORazepam 2 MG/ML VIAL IM ONE (19:45)
[2017-03-06] MEDS ORDERED: HALOPERIDOL 5 MG TABLET PO PRN (20:15)
[2017-03-06 23:06] VITALS: BP 137/60
[2017-03-07 08:00] VITALS: BP 132/71
[2017-03-07] MEDS ORDERED: DiphenhydrAMINE HCL 25 MG CAPSULE PO PRN (08:30)
[2017-03-07] MEDS ORDERED: PETROLATUM,WHITE 71 GM JELLY TP PRN (08:30)
[2017-03-07] MEDS ORDERED: LOPERAMIDE HCL 2 MG CAPSULE PO PRN (08:30)
[2017-03-07] MEDS ORDERED: ALBUTEROL SULFATE HFA 90 MCG/PUFF 8 GM INHALER IH PRN (08:30)
[2017-03-07] MEDS ORDERED: ONDANSETRON HCL 4 MG TABLET PO PRN (08:30)
[2017-03-07] MEDS ORDERED: CloNIDine HCL 0.1 MG TABLET PO PRN (08:30)
[2017-03-07] MEDS ORDERED: IBUPROFEN 600 MG TABLET PO PRN (08:30)
[2017-03-07] MEDS ORDERED: MAGNESIUM HYDROXIDE SUSPENSION 30 ML UDCUP PO PRN (08:30)
[2017-03-07] MEDS ORDERED: BACITRACIN 28.4 GM OINTMENT TP PRN (08:30)
[2017-03-07] MEDS ORDERED: BENZOCAINE/MENTHOL LOZENGE [8 LOZENGES/PACKET] MM PRN (08:45)
[2017-03-07] MEDS: CHOLECALCIFEROL (VIT D3) 1,000 UNITS TABLET PO SCH (09:21)
[2017-03-07] MEDS: TRIHEXYPHENIDYL HCL 5 MG TABLET PO SCH (16:33)
[2017-03-07] MEDS: FluPHENAZine HCL 10 MG TABLET PO SCH (16:33)
[2017-03-07 16:57] VITALS: BP 133/64
[2017-03-07] MEDS: DiphenhydrAMINE HCL 50 MG CAPSULE PO SCH (20:29)
[2017-03-08] MEDS: CHOLECALCIFEROL (VIT D3) 1,000 UNITS TABLET PO SCH (10:12)
[2017-03-08] MEDS: FluPHENAZine HCL 10 MG TABLET PO SCH ×2 (10:12→16:58)
[2017-03-08] MEDS: TRIHEXYPHENIDYL HCL 5 MG TABLET PO SCH ×2 (10:13→16:58)
[2017-03-08 16:00] VITALS: BP 135/69
[2017-03-08] MEDS ORDERED: PNEUMOCOCCAL VACCINE POLYVALENT 0.5 ML VIAL [PPSV23] IM ONE (16:15)
[2017-03-08] MEDS: DiphenhydrAMINE HCL 50 MG CAPSULE PO SCH (20:16)
[2017-03-09] MEDS: TRIHEXYPHENIDYL HCL 5 MG TABLET PO SCH ×2 (08:21→17:27)
[2017-03-09] MEDS: CHOLECALCIFEROL (VIT D3) 1,000 UNITS TABLET PO SCH (08:21)
[2017-03-09] MEDS: FluPHENAZine HCL 10 MG TABLET PO SCH ×2 (08:21→17:27)
[2017-03-09 09:00] VITALS: BP 109/64
[2017-03-09] MEDS: DiphenhydrAMINE HCL 50 MG CAPSULE PO SCH (20:15)
[2017-03-09 21:05] VITALS: BP 112/71
[2017-03-10] MEDS: CHOLECALCIFEROL (VIT D3) 1,000 UNITS TABLET PO SCH (08:14)
[2017-03-10] MEDS: TRIHEXYPHENIDYL HCL 5 MG TABLET PO SCH ×2 (08:14→17:11)
[2017-03-10] MEDS: FluPHENAZine HCL 10 MG TABLET PO SCH ×2 (08:14→17:11)
[2017-03-10] MEDS: DiphenhydrAMINE HCL 50 MG CAPSULE PO SCH (20:37)
[2017-03-10] MEDS: ACETAMINOPHEN 325 MG TABLET PO PRN (21:25)
[2017-03-11] MEDS: CHOLECALCIFEROL (VIT D3) 1,000 UNITS TABLET PO SCH (09:05)
[2017-03-11] MEDS: FluPHENAZine HCL 10 MG TABLET PO SCH ×2 (09:05→16:32)
[2017-03-11] MEDS: TRIHEXYPHENIDYL HCL 5 MG TABLET PO SCH ×2 (09:06→16:32)
[2017-03-11 09:54] VITALS: BP 108/79
[2017-03-11 16:32] VITALS: BP 123/67
[2017-03-11] MEDS: ACETAMINOPHEN 325 MG TABLET PO PRN (20:09)
[2017-03-11] MEDS: DiphenhydrAMINE HCL 50 MG CAPSULE PO SCH (20:21)
[2017-03-12] MEDS: CHOLECALCIFEROL (VIT D3) 1,000 UNITS TABLET PO SCH (08:38)
[2017-03-12] MEDS: FluPHENAZine HCL 10 MG TABLET PO SCH ×2 (08:38→16:54)
[2017-03-12] MEDS: TRIHEXYPHENIDYL HCL 5 MG TABLET PO SCH ×2 (08:38→16:54)
[2017-03-12] MEDS: LORazepam 2 MG TABLET PO PRN ×2 (08:39→20:30)
[2017-03-12 09:25] VITALS: BP 116/60
[2017-03-12] MEDS: AMOXICILLIN TRIHYDRATE 250 MG CAPSULE PO SCH (11:35)
[2017-03-12 16:57] VITALS: BP 105/69
[2017-03-12] MEDS: DiphenhydrAMINE HCL 50 MG CAPSULE PO SCH (20:30)
[2017-03-12] MEDS: MAG HYDROX/AL HYDROX/SIMETH ES 30 ML SUSPENSION UDCUP PO PRN (20:30)
[2017-03-13 08:05] VITALS: BP 101/51
[2017-03-13] MEDS: CHOLECALCIFEROL (VIT D3) 1,000 UNITS TABLET PO SCH (08:43)
[2017-03-13] MEDS: FluPHENAZine HCL 10 MG TABLET PO SCH ×2 (08:44→17:18)
[2017-03-13] MEDS: TRIHEXYPHENIDYL HCL 5 MG TABLET PO SCH ×2 (08:44→17:18)
[2017-03-13] MEDS: AMOXICILLIN TRIHYDRATE 250 MG CAPSULE PO SCH (08:45)
[2017-03-13 18:08] VITALS: BP 103/62
[2017-03-13] MEDS: LORazepam 2 MG TABLET PO PRN (20:26)
[2017-03-13] MEDS: DiphenhydrAMINE HCL 50 MG CAPSULE PO SCH (20:26)
[2017-03-13] MEDS: MAG HYDROX/AL HYDROX/SIMETH ES 30 ML SUSPENSION UDCUP PO PRN (20:26)
[2017-03-14] MEDS: TRIHEXYPHENIDYL HCL 5 MG TABLET PO SCH ×2 (08:01→17:06)
[2017-03-14] MEDS: AMOXICILLIN TRIHYDRATE 250 MG CAPSULE PO SCH (08:01)
[2017-03-14] MEDS: FluPHENAZine HCL 10 MG TABLET PO SCH ×2 (08:02→17:06)
[2017-03-14] MEDS: LORazepam 2 MG TABLET PO PRN (08:03)
[2017-03-14] MEDS: CHOLECALCIFEROL (VIT D3) 1,000 UNITS TABLET PO SCH (08:03)
[2017-03-14 09:19] VITALS: BP 118/71
[2017-03-14] MEDS: DiphenhydrAMINE HCL 50 MG CAPSULE PO SCH (20:45)
[2017-03-14] MEDS: ACETAMINOPHEN 325 MG TABLET PO PRN (20:45)
[2017-03-14] MEDS: ZOLPIDEM TARTRATE 10 MG TABLET PO PRN (22:01)
[2017-03-15 08:00] VITALS: BP 109/69
[2017-03-15] MEDS: AMOXICILLIN TRIHYDRATE 250 MG CAPSULE PO SCH (09:09)
[2017-03-15] MEDS: CHOLECALCIFEROL (VIT D3) 1,000 UNITS TABLET PO SCH (09:09)
[2017-03-15] MEDS: FluPHENAZine HCL 10 MG TABLET PO SCH ×2 (09:09→16:03)
[2017-03-15] MEDS: TRIHEXYPHENIDYL HCL 5 MG TABLET PO SCH ×2 (09:09→16:03)
[2017-03-15] MEDS: LORazepam 2 MG TABLET PO PRN ×2 (11:09→15:52)
[2017-03-15 11:10] VITALS: BP 110/70
[2017-03-15] MEDS: ACETAMINOPHEN 325 MG TABLET PO PRN ×3 (11:10→20:42)
[2017-03-15 12:10] VITALS: BP 110/72
[2017-03-15 16:06] VITALS: BP 144/76
[2017-03-15] MEDS: DiphenhydrAMINE HCL 50 MG CAPSULE PO SCH (20:05)
[2017-03-15 20:41] VITALS: BP 129/68
[2017-03-15] MEDS: MAG HYDROX/AL HYDROX/SIMETH ES 30 ML SUSPENSION UDCUP PO PRN (20:42)
[2017-03-15] MEDS: ZOLPIDEM TARTRATE 10 MG TABLET PO PRN (20:44)
[2017-03-16] MEDS: AMOXICILLIN TRIHYDRATE 250 MG CAPSULE PO SCH (08:33)
[2017-03-16] MEDS: CHOLECALCIFEROL (VIT D3) 1,000 UNITS TABLET PO SCH (08:34)
[2017-03-16] MEDS: TRIHEXYPHENIDYL HCL 5 MG TABLET PO SCH ×2 (08:34→16:08)
[2017-03-16] MEDS: FluPHENAZine HCL 10 MG TABLET PO SCH ×2 (08:34→16:09)
[2017-03-16 10:20] VITALS: BP 107/62
[2017-03-16] MEDS: LORazepam 2 MG TABLET PO PRN (13:09)
[2017-03-16] MEDS ORDERED: AMOX250C4 PO (14:26)
[2017-03-16] MEDS ORDERED: DIPH25 PO (14:26)
[2017-03-16] MEDS ORDERED: VITAD1000 PO (14:26)
[2017-03-16 16:00] VITALS: BP 108/64
== END 2017-03-16 16:45 | disposition home or self-care (01) | DRG 750 ==
LOC: EMS 18:12 → 3EC 20:17
PROVIDERS: ADMIT Psychiatry & Neurology Psychiatry; ATTEND Psychiatry & Neurology Psychiatry
DX: F20.0 Paranoid schizophrenia (principal); R45.851 Suicidal ideations; E55.9 Vitamin D deficiency, unspecified; Z59.0 Homelessness; J44.9 Chronic obstructive pulmonary disease, unspecified; K21.9 Gastro-esophageal reflux disease without esophagitis; Z72.0 Tobacco use; F15.10 Other stimulant abuse, uncomplicated; M79.89 Other specified soft tissue disorders; G47.00 Insomnia, unspecified; J02.9 Acute pharyngitis, unspecified; Z91.14 Patient's other noncompliance with medication regimen
CPT/HCPCS: 87081; 99285; J1200; J1630; J2060

== ENCOUNTER 2017-03-19 19:49 | Emergency (ER) | payer MEDICAID ==
[~2017-03-19] VITALS: Ht 185.4 cm; Wt 81.8 kg
[~2017-03-19 19:49] MED LIST changes: +AMOX250C4 PO; +DIPH25 PO; -DIPH50CA4 PO; +VITAD1000 PO
[2017-03-19 21:59] VITALS: BP 127/88
[2017-03-19] MEDS: FluPHENAZine HCL 5 MG TABLET PO ONE (21:59)
[2017-03-19] MEDS: TRIHEXYPHENIDYL HCL 5 MG TABLET PO ONE (21:59)
== END 2017-03-19 22:12 | disposition home or self-care (01) ==
LOC: EMS 19:52
DX: F41.9 Anxiety disorder, unspecified (principal); F31.9 Bipolar disorder, unspecified; F20.9 Schizophrenia, unspecified; J44.9 Chronic obstructive pulmonary disease, unspecified; F17.210 Nicotine dependence, cigarettes, uncomplicated
CPT/HCPCS: 99284

== ENCOUNTER 2017-04-05 23:45 | Emergency (ER) | payer MEDICAID ==
[~2017-04-05] VITALS: Ht 182.9 cm; Wt 86.4 kg
[~2017-04-05 23:45] MED LIST changes: -AMOX250C4 PO; +CIP250 PO; -DIPH25 PO; +DIPH50 PO; +MULT-29 PO; -VITAD1000 PO
[2017-04-06] MEDS ORDERED: FluPHENAZine HCL 5 MG TABLET PO ONE (00:45)
[2017-04-06] MEDS ORDERED: TRIHEXYPHENIDYL HCL 2 MG TABLET PO ONE (00:45)
[2017-04-06] MEDS ORDERED: LORazepam 2 MG TABLET PO ONE (00:45)
[2017-04-06] MEDS ORDERED: DiphenhydrAMINE HCL 25 MG CAPSULE PO ONE (00:45)
[2017-04-06 03:46] VITALS: BP 142/70
== END 2017-04-06 03:48 | disposition home or self-care (01) ==
LOC: EMS 23:47
DX: F31.9 Bipolar disorder, unspecified (principal); F20.9 Schizophrenia, unspecified; F15.10 Other stimulant abuse, uncomplicated; F41.9 Anxiety disorder, unspecified; F17.210 Nicotine dependence, cigarettes, uncomplicated; J44.9 Chronic obstructive pulmonary disease, unspecified; Z76.0 Encounter for issue of repeat prescription
CPT/HCPCS: 99284; 99406

== ENCOUNTER 2017-11-23 04:05 | Inpatient (IN) | payer MEDICAID, OTHER ==
[~2017-11-23] VITALS: Ht 182.9 cm; Wt 89.4 kg
[~2017-11-23 04:05] MED LIST changes: -CIP250 PO; -DIPH50 PO; +DSS100 PO; -MULT-29 PO; +OMEP20 PO
[2017-11-23 05:13] LABS: AMPHET/METH SCREEN,URINE NEGATIVE (NEGATIVE); BARBITURATE SCREEN, URINE NEGATIVE (NEGATIVE); BENZODIAZEPINES SCREEN,URINE NEGATIVE (NEGATIVE); CANNABINOID SCREEN,URINE NEGATIVE (NEGATIVE); COCAINE SCREEN,URINE NEGATIVE (NEGATIVE); METHADONE SCREEN, URINE NEGATIVE (NEGATIVE); OPIATE SCREEN,URINE NEGATIVE (NEGATIVE)
[2017-11-23 05:17] LABS: PHENCYCLIDINE SCREEN,URINE NEGATIVE (NEGATIVE)
[2017-11-23] MEDS ORDERED: FluPHENAZine HCL 10 MG TABLET PO ONE (09:00)
[2017-11-23] MEDS ORDERED: LORazepam 1 MG TABLET PO ONE (09:00)
[2017-11-23] MEDS ORDERED: TRIHEXYPHENIDYL HCL 5 MG TABLET PO ONE (09:00)
[2017-11-23] MEDS ORDERED: FluPHENAZine HCL 5 MG TABLET PO PRN (09:15)
[2017-11-23 11:36] LABS: BASOPHILS % (AUTO) 0.5 % (0.0-2.0); EOSINOPHILS % (AUTO) 1.7 % (1.0-6.0); HEMATOCRIT 40.7 % (41-53); HEMOGLOBIN 13.9 g/dL (13.5-17.5); LYMPHOCYTES # (AUTO) 1.4 K/uL (1.0-4.8); LYMPHOCYTES % (AUTO) 23.6 % (22.0-44.0); MEAN CORPUSCULAR HEMOGLOBIN 29.8 pg (26.0-34.0); MEAN CORPUSCULAR HGB CONC 34.1 G/dL (31.0-37.0); MEAN CORPUSCULAR VOLUME 87 fL (80-100); MONOCYTES # (AUTO) 0.5 K/uL (0.1-1.0); MONOCYTES % (AUTO) 9.3 % (2.0-9.0); NEUTROPHILS # (AUTO) 3.8 K/uL (1.8-7.7); NEUTROPHILS % (AUTO) 64.9 % (40.0-70.0); PLATELET COUNT (AUTO) 166 K/uL (150-450); RED BLOOD CELL COUNT(AUTO) 4.66 MIL/uL (4.50-5.90); RED CELL DISTRIBUTION WIDTH 12.7 % (11.5-14.5)
[2017-11-23 11:48] LABS: ANION GAP 7 mmol/L (8-16); CALCIUM, TOTAL 9.2 mg/dL (8.8-10.5); CARBON DIOXIDE 31 mmol/L (22-29); CHLORIDE 106 mmol/L (98-107); CREATININE 1.02 mg/dL (0.60-1.30); GLOMERULAR FILTR. RATE CALC > 60 mL/min (>60); GLUCOSE,RANDOM 119 mg/dL (70-110); SODIUM SERUM 144 mmol/L (136-145); UREA NITROGEN, BLOOD 12 mg/dL (7-18)
[2017-11-23 11:54] LABS: ALANINE AMINOTRANSFERASE 44 U/L (12-78); ALBUMIN 3.8 g/dL (3.4-5.0); ALKALINE PHOSPHATASE 120 U/L (46-116); ASPARTATE AMINOTRANSFERASE 40 U/L (15-37); BILIRUBIN,TOTAL 0.3 mg/dL (0.1-1.0); TOTAL PROTEIN, SERUM 7.1 g/dL (6.4-8.2)
[2017-11-23] MEDS ORDERED: ACETAMINOPHEN 325 MG TABLET ONE (16:08)
[2017-11-23 19:51] VITALS: BP 145/68
[2017-11-23] MEDS: TRIHEXYPHENIDYL HCL 5 MG TABLET PO SCH (20:23)
[2017-11-23] MEDS: FluPHENAZine HCL 10 MG TABLET PO SCH (20:23)
[2017-11-23] MEDS: ZOLPIDEM TARTRATE 10 MG TABLET PO PRN (21:11)
[2017-11-23] MEDS: LORazepam 2 MG TABLET PO PRN (21:11)
[2017-11-23] MEDS ORDERED: BENZOCAINE/MENTHOL LOZENGE PO PRN (21:15)
[2017-11-23] MEDS ORDERED: ACETAMINOPHEN 325 MG TABLET PO PRN (21:15)
[2017-11-24 08:00] VITALS: BP 118/67
[2017-11-24] MEDS ORDERED: ONDANSETRON HCL 4 MG TABLET PO PRN (08:00)
[2017-11-24] MEDS ORDERED: MAGNESIUM HYDROXIDE SUSPENSION 30 ML UDCUP PO PRN (08:00)
[2017-11-24] MEDS ORDERED: BACITRACIN 28.4 GM OINTMENT TP PRN (08:00)
[2017-11-24] MEDS ORDERED: CloNIDine HCL 0.1 MG TABLET PO PRN (08:00)
[2017-11-24] MEDS ORDERED: MAG HYDROX/AL HYDROX/SIMETH ES 30 ML SUSPENSION UDCUP PO PRN (08:00)
[2017-11-24] MEDS ORDERED: LOPERAMIDE HCL 2 MG CAPSULE PO PRN (08:00)
[2017-11-24] MEDS ORDERED: PETROLATUM,WHITE 71 GM JELLY TP PRN (08:00)
[2017-11-24] MEDS ORDERED: ALBUTEROL SULFATE HFA 90 MCG/PUFF 8 GM INHALER IH PRN (08:00)
[2017-11-24] MEDS: TRIHEXYPHENIDYL HCL 5 MG TABLET PO SCH ×2 (08:21→16:32)
[2017-11-24] MEDS: FluPHENAZine HCL 10 MG TABLET PO SCH ×2 (08:22→16:32)
[2017-11-24] MEDS: OMEPRAZOLE 20 MG CAPSULE PO SCH (08:22)
[2017-11-24] MEDS: CHOLECALCIFEROL (VIT D3) 1,000 UNITS TABLET PO SCH (08:22)
[2017-11-24] MEDS: DOCUSATE SODIUM 100 MG CAPSULE PO SCH (08:22)
[2017-11-24 16:00] VITALS: BP 116/67
[2017-11-24] MEDS: GuaiFENesin/D-METHORPHAN [SUGAR-FREE] 200-20MG/10 ML SYRUP UDCUP PO PRN (16:32)
[2017-11-24] MEDS: LORazepam 2 MG TABLET PO PRN (16:32)
[2017-11-25 06:53] VITALS: BP 112/85
[2017-11-25 08:05] VITALS: BP 135/73
[2017-11-25] MEDS: CHOLECALCIFEROL (VIT D3) 1,000 UNITS TABLET PO SCH (08:56)
[2017-11-25] MEDS: TRIHEXYPHENIDYL HCL 5 MG TABLET PO SCH ×2 (08:56→16:56)
[2017-11-25] MEDS: FluPHENAZine HCL 10 MG TABLET PO SCH ×2 (08:56→16:56)
[2017-11-25] MEDS: OMEPRAZOLE 20 MG CAPSULE PO SCH (08:56)
[2017-11-25] MEDS: IBUPROFEN 600 MG TABLET PO PRN (08:56)
[2017-11-25] MEDS: DOCUSATE SODIUM 100 MG CAPSULE PO SCH (08:56)
[2017-11-25] MEDS: AZITHROMYCIN 250 MG TABLET PO SCH (08:56)
[2017-11-25 09:56] VITALS: BP 136/70
[2017-11-25] MEDS: LORazepam 2 MG TABLET PO PRN ×2 (10:37→20:37)
[2017-11-25 16:00] VITALS: BP 118/69
[2017-11-25] MEDS: GuaiFENesin/D-METHORPHAN [SUGAR-FREE] 200-20MG/10 ML SYRUP UDCUP PO PRN (20:37)
[2017-11-25] MEDS: ZOLPIDEM TARTRATE 10 MG TABLET PO PRN (20:37)
[2017-11-26 05:55] VITALS: BP 115/72
[2017-11-26 08:03] VITALS: BP 124/78
[2017-11-26 08:34] VITALS: BP 110/70
[2017-11-26] MEDS: IBUPROFEN 600 MG TABLET PO PRN (08:34)
[2017-11-26] MEDS: AZITHROMYCIN 250 MG TABLET PO SCH (08:35)
[2017-11-26] MEDS: FluPHENAZine HCL 10 MG TABLET PO SCH ×2 (08:35→16:01)
[2017-11-26] MEDS: LORazepam 2 MG TABLET PO PRN ×2 (08:35→20:08)
[2017-11-26] MEDS: TRIHEXYPHENIDYL HCL 5 MG TABLET PO SCH ×2 (08:35→16:01)
[2017-11-26] MEDS: CHOLECALCIFEROL (VIT D3) 1,000 UNITS TABLET PO SCH (08:36)
[2017-11-26] MEDS: DOCUSATE SODIUM 100 MG CAPSULE PO SCH (08:36)
[2017-11-26] MEDS: OMEPRAZOLE 20 MG CAPSULE PO SCH (08:36)
[2017-11-26 09:34] VITALS: BP 110/64
[2017-11-26 16:12] VITALS: BP 121/81
[2017-11-26] MEDS: ZOLPIDEM TARTRATE 10 MG TABLET PO PRN (20:08)
[2017-11-27 02:00] VITALS: BP 111/75
[2017-11-27 08:00] VITALS: BP 116/69
[2017-11-27] MEDS: LORazepam 2 MG TABLET PO PRN (08:32)
[2017-11-27] MEDS: AZITHROMYCIN 250 MG TABLET PO SCH (08:32)
[2017-11-27] MEDS: FluPHENAZine HCL 10 MG TABLET PO SCH (08:32)
[2017-11-27] MEDS: TRIHEXYPHENIDYL HCL 5 MG TABLET PO SCH (08:32)
[2017-11-27] MEDS: OMEPRAZOLE 20 MG CAPSULE PO SCH (08:32)
[2017-11-27] MEDS: CHOLECALCIFEROL (VIT D3) 1,000 UNITS TABLET PO SCH (08:33)
[2017-11-27] MEDS: DOCUSATE SODIUM 100 MG CAPSULE PO SCH (08:33)
[2017-11-27] MEDS ORDERED: AZIT250T9 PO (08:52)
[2017-11-27] MEDS: IBUPROFEN 600 MG TABLET PO PRN (10:12)
== END 2017-11-27 10:20 | disposition home or self-care (01) | DRG 750 ==
LOC: EMS 04:06 → B3A 16:40
PROVIDERS: ADMIT Psychiatry & Neurology Psychiatry; ATTEND Psychiatry & Neurology Psychiatry
DX: F20.0 Paranoid schizophrenia (principal); E55.9 Vitamin D deficiency, unspecified; F15.10 Other stimulant abuse, uncomplicated; F17.200 Nicotine dependence, unspecified, uncomplicated; G47.00 Insomnia, unspecified; J44.9 Chronic obstructive pulmonary disease, unspecified; K21.9 Gastro-esophageal reflux disease without esophagitis; Z71.51 Drug abuse counseling and surveillance of drug abuser; Z71.6 Tobacco abuse counseling
CPT/HCPCS: 99285; G0480

== ENCOUNTER 2017-11-29 04:45 | Inpatient (IN) | payer MEDICAID ==
[~2017-11-29] VITALS: Ht 365.8 cm; Wt 88.5 kg
[~2017-11-29 04:45] MED LIST changes: +AZIT250T9 PO
[2017-11-29] MEDS ORDERED: HALOPERIDOL 5 MG TABLET PO PRN (06:15)
[2017-11-29] MEDS ORDERED: PNEUMOCOCCAL VACCINE POLYVALENT 0.5 ML VIAL [PPSV23] IM ONE (07:00)
[2017-11-29] MEDS ORDERED: INFLUENZA VIRUS VACCINE QVS 2017-18 (3YR+)/PF 60 MCG/0.5 ML SYRINGE IM ONE (07:00)
[2017-11-29 07:19] VITALS: BP 133/67
[2017-11-29 08:09] VITALS: BP 118/76
[2017-11-29] MEDS ORDERED: GuaiFENesin/D-METHORPHAN/PHENYLEPH 5 ML LIQUID ORAL.SYG PO PRN (10:00)
[2017-11-29] MEDS ORDERED: ACETAMINOPHEN 325 MG TABLET PO PRN (10:00)
[2017-11-29] MEDS ORDERED: PETROLATUM,WHITE 71 GM JELLY TP PRN (10:00)
[2017-11-29] MEDS ORDERED: LOPERAMIDE HCL 2 MG CAPSULE PO PRN (10:00)
[2017-11-29] MEDS ORDERED: BACITRACIN 28.4 GM OINTMENT TP PRN (10:00)
[2017-11-29] MEDS ORDERED: BENZOCAINE/MENTHOL LOZENGE MM PRN (10:00)
[2017-11-29] MEDS ORDERED: ALBUTEROL SULFATE HFA 90 MCG/PUFF 8 GM INHALER IH PRN (10:00)
[2017-11-29] MEDS ORDERED: CloNIDine HCL 0.1 MG TABLET PO PRN (10:00)
[2017-11-29] MEDS ORDERED: MAGNESIUM HYDROXIDE SUSPENSION 30 ML UDCUP PO PRN (10:00)
[2017-11-29] MEDS ORDERED: ONDANSETRON HCL 4 MG TABLET PO PRN (10:00)
[2017-11-29] MEDS ORDERED: MAG HYDROX/AL HYDROX/SIMETH ES 30 ML SUSPENSION UDCUP PO PRN (10:00)
[2017-11-29 16:00] VITALS: BP 116/67
[2017-11-29] MEDS: TRIHEXYPHENIDYL HCL 5 MG TABLET PO SCH (16:57)
[2017-11-29] MEDS: FluPHENAZine HCL 10 MG TABLET PO SCH (16:57)
[2017-11-29] MEDS: LORazepam 2 MG TABLET PO PRN (20:19)
[2017-11-29] MEDS: ZOLPIDEM TARTRATE 10 MG TABLET PO PRN (21:21)
[2017-11-30] MEDS: DOCUSATE SODIUM 100 MG CAPSULE PO SCH (08:44)
[2017-11-30] MEDS: TRIHEXYPHENIDYL HCL 5 MG TABLET PO SCH ×2 (08:44→16:20)
[2017-11-30] MEDS: OMEPRAZOLE 20 MG CAPSULE PO SCH (08:44)
[2017-11-30] MEDS: FluPHENAZine HCL 10 MG TABLET PO SCH ×2 (08:44→16:20)
[2017-11-30] MEDS: LORazepam 2 MG TABLET PO PRN (16:20)
[2017-11-30 16:39] VITALS: BP 111/76
[2017-11-30 20:10] VITALS: BP 125/74
[2017-11-30] MEDS: IBUPROFEN 600 MG TABLET PO PRN (20:15)
[2017-11-30] MEDS: ZOLPIDEM TARTRATE 10 MG TABLET PO PRN (20:42)
[2017-12-01] MEDS: DOCUSATE SODIUM 100 MG CAPSULE PO SCH (08:28)
[2017-12-01] MEDS: OMEPRAZOLE 20 MG CAPSULE PO SCH (08:28)
[2017-12-01] MEDS: TRIHEXYPHENIDYL HCL 5 MG TABLET PO SCH ×2 (08:29→16:51)
[2017-12-01] MEDS: FluPHENAZine HCL 10 MG TABLET PO SCH ×2 (08:29→16:51)
[2017-12-01 08:30] VITALS: BP 122/78
[2017-12-01 12:29] VITALS: BP 128/82
[2017-12-01] MEDS: IBUPROFEN 600 MG TABLET PO PRN (12:32)
[2017-12-01] MEDS: LORazepam 2 MG TABLET PO PRN ×2 (12:32→16:49)
[2017-12-01 13:33] VITALS: BP 124/76
[2017-12-01 16:37] VITALS: BP 111/52
[2017-12-02 06:42] VITALS: BP 114/68
[2017-12-02] MEDS: TRIHEXYPHENIDYL HCL 5 MG TABLET PO SCH ×2 (08:23→16:33)
[2017-12-02] MEDS: OMEPRAZOLE 20 MG CAPSULE PO SCH (08:23)
[2017-12-02] MEDS: LORazepam 2 MG TABLET PO PRN ×2 (08:23→20:44)
[2017-12-02] MEDS: DOCUSATE SODIUM 100 MG CAPSULE PO SCH (08:23)
[2017-12-02] MEDS: FluPHENAZine HCL 10 MG TABLET PO SCH ×2 (08:23→16:33)
[2017-12-02 08:53] VITALS: BP 122/65
[2017-12-02 16:00] VITALS: BP 118/70
[2017-12-02] MEDS: ZOLPIDEM TARTRATE 10 MG TABLET PO PRN (20:45)
[2017-12-03 06:38] VITALS: BP 112/82
[2017-12-03 08:09] VITALS: BP 115/71
[2017-12-03] MEDS: FluPHENAZine HCL 10 MG TABLET PO SCH ×2 (08:41→16:01)
[2017-12-03] MEDS: DOCUSATE SODIUM 100 MG CAPSULE PO SCH (08:41)
[2017-12-03] MEDS: OMEPRAZOLE 20 MG CAPSULE PO SCH (08:41)
[2017-12-03] MEDS: TRIHEXYPHENIDYL HCL 5 MG TABLET PO SCH ×2 (08:41→16:01)
[2017-12-03 08:47] LABS: BASOPHILS % (AUTO) 0.4 % (0.0-2.0); EOSINOPHILS % (AUTO) 3.6 % (1.0-6.0); HEMATOCRIT 42.4 % (41-53); HEMOGLOBIN 14.4 g/dL (13.5-17.5); LYMPHOCYTES % (AUTO) 25.5 % (22.0-44.0); MEAN CORPUSCULAR HEMOGLOBIN 30.2 pg (26.0-34.0); MEAN CORPUSCULAR VOLUME 89 fL (80-100); MONOCYTES # (AUTO) 0.3 K/uL (0.1-1.0); MONOCYTES % (AUTO) 4.3 % (2.0-9.0); NEUTROPHILS # (AUTO) 5.3 K/uL (1.8-7.7); NEUTROPHILS % (AUTO) 66.2 % (40.0-70.0); PLATELET COUNT (AUTO) 166 K/uL (150-450); RED BLOOD CELL COUNT(AUTO) 4.77 MIL/uL (4.50-5.90); RED CELL DISTRIBUTION WIDTH 12.6 % (11.5-14.5)
[2017-12-03 09:32] LABS: HEMOGLOBIN A1C 5.2 % (4.5-6.2)
[2017-12-03 10:16] LABS: ALANINE AMINOTRANSFERASE 31 U/L (12-78); ALBUMIN 3.6 g/dL (3.4-5.0); ALKALINE PHOSPHATASE 97 U/L (46-116); ANION GAP 3 mmol/L (8-16); ASPARTATE AMINOTRANSFERASE 19 U/L (15-37); BILIRUBIN,TOTAL 0.3 mg/dL (0.1-1.0); CALCIUM, TOTAL 8.8 mg/dL (8.8-10.5); CARBON DIOXIDE 32 mmol/L (22-29); CHLORIDE 103 mmol/L (98-107); CREATININE 0.86 mg/dL (0.60-1.30); FREE T4 (FREE THYROXINE) 0.77 ng/dL (0.76-1.46); GLOMERULAR FILTR. RATE CALC > 60 mL/min (>60); GLUCOSE,RANDOM 134 mg/dL (70-110); POTASSIUM 4.2 mmol/L (3.5-5.1); SODIUM SERUM 138 mmol/L (136-145); THYROID STIMULATING HORMONE 1.15 uIU/mL (0.36-3.74); UREA NITROGEN, BLOOD 19 mg/dL (7-18)
[2017-12-03 16:00] VITALS: BP 110/64
[2017-12-03] MEDS: LORazepam 2 MG TABLET PO PRN ×2 (16:01→20:01)
[2017-12-03] MEDS: ZOLPIDEM TARTRATE 10 MG TABLET PO PRN (20:01)
[2017-12-04 04:26] VITALS: BP 101/56
[2017-12-04 08:06] VITALS: BP 138/74
[2017-12-04] MEDS: FluPHENAZine HCL 10 MG TABLET PO SCH (09:12)
[2017-12-04] MEDS: TRIHEXYPHENIDYL HCL 5 MG TABLET PO SCH (09:12)
[2017-12-04] MEDS: OMEPRAZOLE 20 MG CAPSULE PO SCH (09:12)
[2017-12-04] MEDS: DOCUSATE SODIUM 100 MG CAPSULE PO SCH (09:12)
== END 2017-12-04 13:28 | disposition home or self-care (01) | DRG 750 ==
LOC: B3A 06:23 → EDSTATUS 06:25 → B3A 11-30 19:36
PROVIDERS: ADMIT Psychiatry & Neurology Psychiatry; ATTEND Psychiatry & Neurology Psychiatry
DX: F25.9 Schizoaffective disorder, unspecified (principal); F15.10 Other stimulant abuse, uncomplicated; Z28.21 Immunization not carried out because of patient refusal; F17.200 Nicotine dependence, unspecified, uncomplicated; G47.00 Insomnia, unspecified; J44.9 Chronic obstructive pulmonary disease, unspecified; K21.9 Gastro-esophageal reflux disease without esophagitis; Z71.51 Drug abuse counseling and surveillance of drug abuser; Z71.6 Tobacco abuse counseling; Z56.0 Unemployment, unspecified; F41.9 Anxiety disorder, unspecified; R30.0 Dysuria
CPT/HCPCS: 83036; 84439; 84443; 87081; 99285

== ENCOUNTER 2019-03-20 13:23 | Emergency (ER) | payer MEDICAID, OTHER ==
[~2019-03-20] VITALS: Ht 182.9 cm; Wt 90.9 kg
[~2019-03-20 13:23] MED LIST changes: -AZIT250T9 PO
[2019-03-20 15:40] VITALS: BP 124/90
== END 2019-03-20 15:48 | disposition home or self-care (01) ==
LOC: EMS 13:23
DX: F20.0 Paranoid schizophrenia (principal); F41.9 Anxiety disorder, unspecified; F31.9 Bipolar disorder, unspecified; J44.9 Chronic obstructive pulmonary disease, unspecified; F17.210 Nicotine dependence, cigarettes, uncomplicated

== ENCOUNTER 2019-04-16 13:15 | Emergency (ER) | payer OTHER ==
[~2019-04-16] VITALS: Ht 185.4 cm; Wt 90.0 kg
[2019-04-16 14:19] LABS: BASOPHILS % (AUTO) 0.3 % (0.0-2.0); EOSINOPHILS % (AUTO) 1.4 % (1.0-6.0); HEMATOCRIT 41.3 % (41-53); HEMOGLOBIN 13.4 g/dL (13.5-17.5); LYMPHOCYTES # (AUTO) 1.5 K/uL (1.0-4.8); LYMPHOCYTES % (AUTO) 22.7 % (22.0-44.0); MEAN CORPUSCULAR HEMOGLOBIN 29.3 pg (26.0-34.0); MEAN CORPUSCULAR HGB CONC 32.5 G/dL (31.0-37.0); MEAN CORPUSCULAR VOLUME 90 fL (80-100); MONOCYTES # (AUTO) 0.3 K/uL (0.1-1.0); MONOCYTES % (AUTO) 4.2 % (2.0-9.0); NEUTROPHILS # (AUTO) 4.7 K/uL (1.8-7.7); NEUTROPHILS % (AUTO) 71.4 % (40.0-70.0); PLATELET COUNT (AUTO) 158 K/uL (150-450); RED BLOOD CELL COUNT(AUTO) 4.57 MIL/uL (4.50-5.90); RED CELL DISTRIBUTION WIDTH 12.7 % (11.5-14.5)
[2019-04-16 14:34] LABS: ANION GAP 12 mmol/L (8-16); CALCIUM, TOTAL 9.4 mg/dL (8.8-10.5); CARBON DIOXIDE 25 mmol/L (22-29); CHLORIDE 106 mmol/L (98-107); CREATININE 1.13 mg/dL (0.60-1.30); GLOMERULAR FILTR. RATE CALC > 60 mL/min (>60); GLUCOSE,RANDOM 157 mg/dL (70-110); POTASSIUM 3.6 mmol/L (3.5-5.1); SODIUM SERUM 143 mmol/L (136-145); UREA NITROGEN, BLOOD 18 mg/dL (7-18)
[2019-04-16 14:38] LABS: ALANINE AMINOTRANSFERASE 47 U/L (12-78); ALBUMIN 3.9 g/dL (3.4-5.0); ALKALINE PHOSPHATASE 77 U/L (46-116); ASPARTATE AMINOTRANSFERASE 23 U/L (15-37); BILIRUBIN,TOTAL 0.4 mg/dL (0.1-1.0); TOTAL PROTEIN, SERUM 7.1 g/dL (6.4-8.2)
[2019-04-16] MEDS ORDERED: FluPHENAZine HCL 10 MG TABLET PO ONE (15:15)
[2019-04-16] MEDS ORDERED: TRIHEXYPHENIDYL HCL 5 MG TABLET PO ONE (15:15)
[2019-04-16 15:32] VITALS: BP 138/86
== END 2019-04-16 15:55 | disposition home or self-care (01) ==
LOC: EMS 13:16
DX: F20.9 Schizophrenia, unspecified (principal); F17.210 Nicotine dependence, cigarettes, uncomplicated; F41.9 Anxiety disorder, unspecified; F31.9 Bipolar disorder, unspecified; J44.9 Chronic obstructive pulmonary disease, unspecified
CPT/HCPCS: 36415; 80053; 85025; 99284; 99406; G0480

== ENCOUNTER 2020-05-12 00:06 | Inpatient (IN) | payer MEDICAID ==
[~2020-05-12] VITALS: Ht 182.9 cm; Wt 89.8 kg
[2020-05-12] MEDS ORDERED: HALOPERIDOL 5 MG TABLET PO PRN (06:15)
[2020-05-12] MEDS ORDERED: ZOLPIDEM TARTRATE 10 MG TABLET PO PRN (06:15)
[2020-05-12 06:38] VITALS: BP 112/84
[2020-05-12] MEDS ORDERED: TRIH2TAB3 PO (07:43)
[2020-05-12] MEDS ORDERED: FLUP10 PO (07:43)
[2020-05-12 08:26] VITALS: BP 114/64
[2020-05-12] MEDS ORDERED: ONDANSETRON HCL 4 MG TABLET PO PRN (09:00)
[2020-05-12] MEDS ORDERED: BENZOCAINE/MENTHOL LOZENGE PO PRN (09:00)
[2020-05-12] MEDS ORDERED: BACITRACIN 28 GM OINTMENT TP PRN (09:00)
[2020-05-12] MEDS ORDERED: DOCUSATE SODIUM 100 MG CAPSULE PO PRN (09:00)
[2020-05-12] MEDS ORDERED: IBUPROFEN 600 MG TABLET PO PRN (09:00)
[2020-05-12] MEDS ORDERED: PETROLATUM,WHITE 28 GM JELLY TP PRN (09:00)
[2020-05-12] MEDS ORDERED: OMEPRAZOLE 20 MG CAPSULE PO PRN (09:00)
[2020-05-12] MEDS ORDERED: ALBUTEROL SULFATE HFA 90 MCG/PUFF 8 GM INHALER IH PRN (09:00)
[2020-05-12] MEDS ORDERED: CloNIDine HCL 0.1 MG TABLET PO PRN (09:00)
[2020-05-12] MEDS ORDERED: MAGNESIUM HYDROXIDE SUSPENSION 30 ML UDCUP PO PRN (09:00)
[2020-05-12] MEDS ORDERED: LOPERAMIDE HCL 2 MG CAPSULE PO PRN (09:00)
[2020-05-12] MEDS: TRIHEXYPHENIDYL HCL 2 MG TABLET PO SCH ×2 (12:51→16:42)
[2020-05-12 16:26] VITALS: BP 122/66
[2020-05-12] MEDS: LORazepam 2 MG TABLET PO PRN (16:42)
[2020-05-12] MEDS: MAG HYDROX/AL HYDROX/SIMETH ES 30 ML SUSPENSION UDCUP PO PRN (17:31)
[2020-05-12] MEDS: FluPHENAZine HCL 10 MG TABLET PO SCH (20:40)
[2020-05-13 06:34] VITALS: BP 120/68
[2020-05-13 09:00] VITALS: BP 109/62
[2020-05-13] MEDS: LORazepam 2 MG TABLET PO PRN ×2 (09:36→20:27)
[2020-05-13] MEDS: TRIHEXYPHENIDYL HCL 2 MG TABLET PO SCH ×2 (09:36→16:52)
[2020-05-13] MEDS: ACETAMINOPHEN 325 MG TABLET PO PRN (09:41)
[2020-05-13] MEDS: MAG HYDROX/AL HYDROX/SIMETH ES 30 ML SUSPENSION UDCUP PO PRN ×2 (12:23→20:49)
[2020-05-13 16:08] VITALS: BP 124/76
[2020-05-13] MEDS: NYSTATIN 15 GM POWDER BOTTLE TP SCH (16:52)
[2020-05-13] MEDS: FluPHENAZine HCL 10 MG TABLET PO SCH (20:27)
[2020-05-14 07:39] LABS: BASOPHILS % (AUTO) 0.8 % (0.0-2.0); EOSINOPHILS % (AUTO) 4.2 % (1.0-6.0); HEMATOCRIT 40.4 % (41-53); HEMOGLOBIN 13.7 g/dL (13.5-17.5); LYMPHOCYTES # (AUTO) 1.7 K/uL (1.0-4.8); LYMPHOCYTES % (AUTO) 34.4 % (22.0-44.0); MEAN CORPUSCULAR HEMOGLOBIN 29.9 pg (26.0-34.0); MEAN CORPUSCULAR HGB CONC 33.9 G/dL (31.0-37.0); MEAN CORPUSCULAR VOLUME 88 fL (80-100); MONOCYTES # (AUTO) 0.3 K/uL (0.1-1.0); MONOCYTES % (AUTO) 5.1 % (2.0-9.0); NEUTROPHILS # (AUTO) 2.8 K/uL (1.8-7.7); NEUTROPHILS % (AUTO) 55.5 % (40.0-70.0); PLATELET COUNT (AUTO) 171 K/uL (150-450); RED BLOOD CELL COUNT(AUTO) 4.58 MIL/uL (4.50-5.90); RED CELL DISTRIBUTION WIDTH 12.8 % (11.5-14.5)
[2020-05-14 08:16] LABS: ALANINE AMINOTRANSFERASE 31 U/L (12-78); ALBUMIN 3.6 g/dL (3.4-5.0); ALKALINE PHOSPHATASE 65 U/L (46-116); ANION GAP 1 mmol/L (8-16); ASPARTATE AMINOTRANSFERASE 17 U/L (15-37); BILIRUBIN,TOTAL 0.3 mg/dL (0.1-1.0); CARBON DIOXIDE 33 mmol/L (22-29); CHLORIDE 105 mmol/L (98-107); CHOL/HDL RATIO 3.8 (4.2-7.3); CHOLESTEROL 173 mg/dL (131-200); CREATININE 0.96 mg/dL (0.60-1.30); GLOMERULAR FILTR. RATE CALC > 60 mL/min (>60); GLUCOSE,RANDOM 92 mg/dL (70-110); HDL CHOLESTEROL 45 mg/dL (40-60); LDL CHOL (CALC.) 115 mg/dL (0-130); POTASSIUM 4.7 mmol/L (3.5-5.1); SODIUM SERUM 139 mmol/L (136-145); TOTAL PROTEIN, SERUM 6.7 g/dL (6.4-8.2); TRIGLYCERIDES 63 mg/dL (15-150); UREA NITROGEN, BLOOD 18 mg/dL (7-18)
[2020-05-14] MEDS: TRIHEXYPHENIDYL HCL 2 MG TABLET PO SCH (08:20)
[2020-05-14] MEDS: NYSTATIN 15 GM POWDER BOTTLE TP SCH ×2 (08:28→16:58)
[2020-05-14 08:50] VITALS: BP 110/55
[2020-05-14] MEDS: CIPROFLOXACIN HCL 500 MG TABLET PO SCH ×2 (09:24→16:58)
[2020-05-14] MEDS ORDERED: DOCU-275 PO (14:51)
[2020-05-14 16:24] VITALS: BP 135/92
[2020-05-14] MEDS: TRIHEXYPHENIDYL HCL 5 MG TABLET PO SCH (16:58)
[2020-05-14] MEDS: LORazepam 2 MG TABLET PO PRN (16:58)
[2020-05-14] MEDS: MAG HYDROX/AL HYDROX/SIMETH ES 30 ML SUSPENSION UDCUP PO PRN (17:12)
[2020-05-14] MEDS: FluPHENAZine HCL 10 MG TABLET PO SCH (20:17)
[2020-05-15 08:08] LABS: APPEARANCE,URINE CLEAR (CLEAR); BILIRUBIN,URINE NEGATIVE (NEGATIVE); GLUCOSE, URINE (UA) NEGATIVE (NEGATIVE); KETONES,URINE NEGATIVE (NEGATIVE); LEUKOCYTE ESTERASE ,URINE NEGATIVE (NEGATIVE); NITRATE,URINE NEGATIVE (NEGATIVE); OCCULT BLOOD,URINE NEGATIVE (NEGATIVE); PH,URINE 7.5 (5.0-8.0); PROTEIN,URINE NEGATIVE (NEGATIVE); UROBILINOGEN,URINE 0.2 mg/dL (<=1.0)
[2020-05-15 08:14] LABS: AMPHET/METH SCREEN,URINE NEGATIVE (NEGATIVE); BARBITURATE SCREEN, URINE NEGATIVE (NEGATIVE); BENZODIAZEPINES SCREEN,URINE NEGATIVE (NEGATIVE); CANNABINOID SCREEN,URINE NEGATIVE (NEGATIVE); COCAINE SCREEN,URINE NEGATIVE (NEGATIVE); METHADONE SCREEN, URINE NEGATIVE (NEGATIVE); OPIATE SCREEN,URINE NEGATIVE (NEGATIVE)
[2020-05-15 08:15] LABS: PHENCYCLIDINE SCREEN,URINE NEGATIVE (NEGATIVE)
[2020-05-15 08:29] LABS: BACTERIA,URINE None Seen /HPF (None Seen); RBC,URINE None Seen /HPF (0-2); WBC,URINE None Seen /HPF (0-5)
[2020-05-15 08:52] VITALS: BP 107/68
[2020-05-15] MEDS: TRIHEXYPHENIDYL HCL 5 MG TABLET PO SCH ×2 (08:52→16:36)
[2020-05-15] MEDS: LORazepam 2 MG TABLET PO PRN ×2 (08:52→20:07)
[2020-05-15] MEDS: ACETAMINOPHEN 325 MG TABLET PO PRN ×2 (08:52→20:07)
[2020-05-15] MEDS: MAG HYDROX/AL HYDROX/SIMETH ES 30 ML SUSPENSION UDCUP PO PRN ×2 (08:53→20:07)
[2020-05-15] MEDS: CIPROFLOXACIN HCL 500 MG TABLET PO SCH ×2 (08:53→16:36)
[2020-05-15] MEDS: NYSTATIN 15 GM POWDER BOTTLE TP SCH (09:00)
[2020-05-15 09:14] VITALS: BP 107/68
[2020-05-15 16:18] VITALS: BP 99/64
[2020-05-15 20:07] VITALS: BP 112/70
[2020-05-15] MEDS: FluPHENAZine HCL 10 MG TABLET PO SCH (20:07)
[2020-05-15] MEDS ORDERED: CIPR-278 PO (20:39)
[2020-05-15] MEDS: NYSTATIN 30 GM CREAM TP SCH (21:32)
[2020-05-16 06:43] VITALS: BP 114/72
[2020-05-16] MEDS ORDERED: CIPR-278 PO (07:58)
[2020-05-16] MEDS: TRIHEXYPHENIDYL HCL 5 MG TABLET PO SCH (08:24)
[2020-05-16] MEDS: CIPROFLOXACIN HCL 500 MG TABLET PO SCH (08:24)
[2020-05-16] MEDS: ACETAMINOPHEN 325 MG TABLET PO PRN (08:25)
[2020-05-16] MEDS: NYSTATIN 30 GM CREAM TP SCH (09:08)
[2020-05-16] MEDS: MAG HYDROX/AL HYDROX/SIMETH ES 30 ML SUSPENSION UDCUP PO PRN (09:14)
== END 2020-05-16 13:15 | disposition home or self-care (01) | DRG 750 ==
LOC: B3A 06:01
PROVIDERS: ADMIT Psychiatry & Neurology Psychiatry; ATTEND Psychiatry & Neurology Psychiatry
DX: F20.0 Paranoid schizophrenia (principal); F15.10 Other stimulant abuse, uncomplicated; F17.200 Nicotine dependence, unspecified, uncomplicated; G47.00 Insomnia, unspecified; J44.9 Chronic obstructive pulmonary disease, unspecified; K21.9 Gastro-esophageal reflux disease without esophagitis; R45.851 Suicidal ideations; Z59.0 Homelessness; Z71.6 Tobacco abuse counseling; Z71.51 Drug abuse counseling and surveillance of drug abuser; Z79.899 Other long term (current) drug therapy
CPT/HCPCS: 80307; 86592; 87491; 87591

== ENCOUNTER 2020-08-10 18:46 | Emergency (ER) | payer MEDICAID, OTHER ==
[~2020-08-10] VITALS: Ht 177.8 cm; Wt 75.0 kg
[~2020-08-10 18:46] MED LIST changes: +CIPR-278 PO; -DSS100 PO; -OMEP20 PO
[2020-08-10 18:56] VITALS: BP 141/71
[2020-08-10 20:58] LABS: BASOPHILS % (AUTO) 0.4 % (0.0-2.0); EOSINOPHILS % (AUTO) 1.8 % (1.0-6.0); HEMATOCRIT 45.5 % (41-53); HEMOGLOBIN 15.3 g/dL (13.5-17.5); LYMPHOCYTES # (AUTO) 2.3 K/uL (1.0-4.8); LYMPHOCYTES % (AUTO) 27.4 % (22.0-44.0); MEAN CORPUSCULAR HEMOGLOBIN 30.1 pg (26.0-34.0); MEAN CORPUSCULAR HGB CONC 33.6 G/dL (31.0-37.0); MEAN CORPUSCULAR VOLUME 90 fL (80-100); MONOCYTES # (AUTO) 0.4 K/uL (0.1-1.0); NEUTROPHILS # (AUTO) 5.5 K/uL (1.8-7.7); NEUTROPHILS % (AUTO) 65.4 % (40.0-70.0); PLATELET COUNT (AUTO) 216 K/uL (150-450); RED BLOOD CELL COUNT(AUTO) 5.07 MIL/uL (4.50-5.90); RED CELL DISTRIBUTION WIDTH 13.4 % (11.5-14.5)
[2020-08-10 21:08] LABS: AMPHET/METH SCREEN,URINE NEGATIVE (NEGATIVE); BARBITURATE SCREEN, URINE NEGATIVE (NEGATIVE); BENZODIAZEPINES SCREEN,URINE NEGATIVE (NEGATIVE); CANNABINOID SCREEN,URINE NEGATIVE (NEGATIVE); COCAINE SCREEN,URINE NEGATIVE (NEGATIVE); METHADONE SCREEN, URINE NEGATIVE (NEGATIVE); OPIATE SCREEN,URINE NEGATIVE (NEGATIVE)
[2020-08-10 21:08] LABS: ANION GAP 11 mmol/L (8-16); CARBON DIOXIDE 31 mmol/L (22-29); CHLORIDE 102 mmol/L (98-107); CREATININE 1.03 mg/dL (0.60-1.30); GLOMERULAR FILTR. RATE CALC > 60 mL/min (>60); GLUCOSE,RANDOM 100 mg/dL (70-110); SODIUM SERUM 144 mmol/L (136-145); UREA NITROGEN, BLOOD 15 mg/dL (7-18)
[2020-08-10 21:11] LABS: PHENCYCLIDINE SCREEN,URINE NEGATIVE (NEGATIVE)
[2020-08-10 21:14] LABS: ALANINE AMINOTRANSFERASE 41 U/L (12-78); ALBUMIN 4.6 g/dL (3.4-5.0); ALKALINE PHOSPHATASE 86 U/L (46-116); ASPARTATE AMINOTRANSFERASE 22 U/L (15-37); BILIRUBIN,TOTAL 0.4 mg/dL (0.1-1.0); TOTAL PROTEIN, SERUM 8.2 g/dL (6.4-8.2)
== END 2020-08-10 21:40 | disposition left against medical advice (07) ==
LOC: EMS 18:46
DX: R45.851 Suicidal ideations (principal)
CPT/HCPCS: 36415; 80053; 80307; 85025; G0480

== ENCOUNTER 2020-08-11 20:22 | Inpatient (IN) | payer MEDICAID, OTHER ==
[~2020-08-11] VITALS: Ht 182.9 cm; Wt 88.5 kg
[2020-08-11 21:23] LABS: AMPHET/METH SCREEN,URINE NEGATIVE (NEGATIVE); BARBITURATE SCREEN, URINE NEGATIVE (NEGATIVE); BENZODIAZEPINES SCREEN,URINE NEGATIVE (NEGATIVE); CANNABINOID SCREEN,URINE NEGATIVE (NEGATIVE); COCAINE SCREEN,URINE NEGATIVE (NEGATIVE); METHADONE SCREEN, URINE NEGATIVE (NEGATIVE); OPIATE SCREEN,URINE NEGATIVE (NEGATIVE); PHENCYCLIDINE SCREEN,URINE NEGATIVE (NEGATIVE)
[2020-08-11 21:28] LABS: BASOPHILS % (AUTO) 0.5 % (0.0-2.0); EOSINOPHILS % (AUTO) 2.5 % (1.0-6.0); HEMATOCRIT 41.9 % (41-53); HEMOGLOBIN 14.2 g/dL (13.5-17.5); LYMPHOCYTES # (AUTO) 2.6 K/uL (1.0-4.8); LYMPHOCYTES % (AUTO) 29.6 % (22.0-44.0); MEAN CORPUSCULAR HEMOGLOBIN 30.2 pg (26.0-34.0); MEAN CORPUSCULAR HGB CONC 33.9 G/dL (31.0-37.0); MEAN CORPUSCULAR VOLUME 89 fL (80-100); MONOCYTES # (AUTO) 0.7 K/uL (0.1-1.0); MONOCYTES % (AUTO) 7.4 % (2.0-9.0); NEUTROPHILS # (AUTO) 5.3 K/uL (1.8-7.7); PLATELET COUNT (AUTO) 183 K/uL (150-450); RED CELL DISTRIBUTION WIDTH 13.2 % (11.5-14.5)
[2020-08-11 21:37] LABS: ANION GAP 8 mmol/L (8-16); CARBON DIOXIDE 28 mmol/L (22-29); CHLORIDE 101 mmol/L (98-107); CREATININE 1.05 mg/dL (0.60-1.30); GLOMERULAR FILTR. RATE CALC > 60 mL/min (>60); GLUCOSE,RANDOM 129 mg/dL (70-110); POTASSIUM 3.5 mmol/L (3.5-5.1); SODIUM SERUM 137 mmol/L (136-145); UREA NITROGEN, BLOOD 14 mg/dL (7-18)
[2020-08-11 21:42] LABS: ALANINE AMINOTRANSFERASE 39 U/L (12-78); ALKALINE PHOSPHATASE 79 U/L (46-116); ASPARTATE AMINOTRANSFERASE 37 U/L (15-37); BILIRUBIN,TOTAL 0.4 mg/dL (0.1-1.0); TOTAL PROTEIN, SERUM 6.9 g/dL (6.4-8.2)
[2020-08-11] MEDS ORDERED: ZOLPIDEM TARTRATE 10 MG TABLET PO PRN (21:45)
[2020-08-11] MEDS ORDERED: HALOPERIDOL 5 MG TABLET PO PRN (21:45)
[2020-08-11 22:36] LABS: COVID AG,FIA SOURCE NASOPHARYNGEAL
[2020-08-12 05:19] LABS: CHOL/HDL RATIO 3.5 (4.2-7.3); CHOLESTEROL 204 mg/dL (131-200); HDL CHOLESTEROL 59 mg/dL (40-60); LDL CHOL (CALC.) 131 mg/dL (0-130); TRIGLYCERIDES 71 mg/dL (15-150)
[2020-08-12 16:29] VITALS: BP 132/72
[2020-08-12] MEDS ORDERED: NICOTINE 21 MG/24 HOUR PATCH TD SCH (16:45)
[2020-08-12] MEDS ORDERED: INFLUENZA VIRUS VACCINE QVS 2020-21 (6MO+)/PF 60 MCG/0.5 ML SYRINGE IM ONE (18:15)
[2020-08-12] MEDS ORDERED: PNEUMOCOCCAL VACCINE POLYVALENT 0.5 ML VIAL [PPSV23] IM ONE (18:15)
[2020-08-12] MEDS: LORazepam 2 MG TABLET PO PRN (18:49)
[2020-08-13 01:37] VITALS: BP 128/67
[2020-08-13 08:04] VITALS: BP 114/68
[2020-08-13] MEDS: TRIHEXYPHENIDYL HCL 5 MG TABLET PO SCH ×2 (12:11→16:48)
[2020-08-13] MEDS: LORazepam 2 MG TABLET PO PRN (12:37)
[2020-08-13 16:19] VITALS: BP 118/70
[2020-08-13] MEDS: MAG HYDROX/AL HYDROX/SIMETH ES 30 ML SUSPENSION UDCUP PO PRN (18:17)
[2020-08-13] MEDS: FluPHENAZine HCL 10 MG TABLET PO SCH (20:40)
[2020-08-14 04:05] VITALS: BP 128/68
[2020-08-14 08:04] VITALS: BP 112/69
[2020-08-14] MEDS: TRIHEXYPHENIDYL HCL 5 MG TABLET PO SCH ×2 (08:06→16:06)
[2020-08-14] MEDS: LORazepam 2 MG TABLET PO PRN (09:06)
[2020-08-14] MEDS: MAG HYDROX/AL HYDROX/SIMETH ES 30 ML SUSPENSION UDCUP PO PRN (09:06)
[2020-08-14 16:15] VITALS: BP 111/65
[2020-08-14] MEDS: FluPHENAZine HCL 10 MG TABLET PO SCH (20:46)
[2020-08-15 01:29] VITALS: BP 119/68
[2020-08-15 08:04] VITALS: BP 131/70
[2020-08-15] MEDS: MAG HYDROX/AL HYDROX/SIMETH ES 30 ML SUSPENSION UDCUP PO PRN (08:49)
[2020-08-15] MEDS: TRIHEXYPHENIDYL HCL 5 MG TABLET PO SCH ×2 (08:49→16:24)
[2020-08-15] MEDS: LORazepam 2 MG TABLET PO PRN ×2 (08:50→20:30)
[2020-08-15] MEDS: ACETAMINOPHEN 325 MG TABLET PO PRN (08:50)
[2020-08-15] MEDS: FluPHENAZine HCL 10 MG TABLET PO SCH (20:30)
[2020-08-16 02:10] VITALS: BP 124/65
[2020-08-16 08:33] VITALS: BP 99/48
[2020-08-16] MEDS: TRIHEXYPHENIDYL HCL 5 MG TABLET PO SCH ×2 (08:51→16:59)
[2020-08-16] MEDS: ACETAMINOPHEN 325 MG TABLET PO PRN ×2 (08:51→19:05)
[2020-08-16] MEDS: MAG HYDROX/AL HYDROX/SIMETH ES 30 ML SUSPENSION UDCUP PO PRN ×2 (08:51→19:05)
[2020-08-16 19:00] VITALS: BP 119/64
[2020-08-16] MEDS: LORazepam 2 MG TABLET PO PRN (19:06)
[2020-08-16] MEDS: FluPHENAZine HCL 10 MG TABLET PO SCH (20:45)
[2020-08-17 03:47] VITALS: BP 116/75
[2020-08-17 04:31] VITALS: BP 118/72
[2020-08-17] MEDS: TRIHEXYPHENIDYL HCL 5 MG TABLET PO SCH ×2 (08:17→16:39)
[2020-08-17 09:24] VITALS: BP 127/73
[2020-08-17] MEDS: ACETAMINOPHEN 325 MG TABLET PO PRN (09:24)
[2020-08-17] MEDS: MAG HYDROX/AL HYDROX/SIMETH ES 30 ML SUSPENSION UDCUP PO PRN (09:24)
[2020-08-17] MEDS: LORazepam 2 MG TABLET PO PRN ×2 (12:35→17:54)
[2020-08-17] MEDS: FluPHENAZine HCL 10 MG TABLET PO SCH (20:22)
[2020-08-18] MEDS: TRIHEXYPHENIDYL HCL 5 MG TABLET PO SCH ×2 (08:02→16:19)
[2020-08-18 08:04] VITALS: BP 135/80
[2020-08-18] MEDS: MAG HYDROX/AL HYDROX/SIMETH ES 30 ML SUSPENSION UDCUP PO PRN (09:40)
[2020-08-18 16:29] VITALS: BP 127/68
[2020-08-18] MEDS: LORazepam 2 MG TABLET PO PRN (19:23)
[2020-08-18] MEDS: FluPHENAZine HCL 10 MG TABLET PO SCH (20:54)
[2020-08-19 08:03] VITALS: BP 139/66
[2020-08-19] MEDS: TRIHEXYPHENIDYL HCL 5 MG TABLET PO SCH (08:47)
== END 2020-08-19 13:10 | disposition home or self-care (01) | DRG 750 ==
LOC: EMS 20:22 → B3A 08-12 15:15
PROVIDERS: ADMIT Psychiatry & Neurology Psychiatry; ATTEND Psychiatry & Neurology Psychiatry
DX: F25.9 Schizoaffective disorder, unspecified (principal); R45.851 Suicidal ideations; F32.9 Major depressive disorder, single episode, unspecified; Z20.828 Contact with and (suspected) exposure to other viral communicable diseases; F41.9 Anxiety disorder, unspecified; E78.5 Hyperlipidemia, unspecified; G20 Parkinson's disease; E78.00 Pure hypercholesterolemia, unspecified; G47.00 Insomnia, unspecified; K59.00 Constipation, unspecified; F19.10 Other psychoactive substance abuse, uncomplicated; F17.210 Nicotine dependence, cigarettes, uncomplicated; J44.9 Chronic obstructive pulmonary disease, unspecified; E55.9 Vitamin D deficiency, unspecified
CPT/HCPCS: 87426; G0480

== ENCOUNTER 2022-11-16 21:50 | Inpatient (IN) | payer MEDICAID ==
[~2022-11-16] VITALS: Ht 185.4 cm; Wt 78.6 kg
[~2022-11-16 21:50] MED LIST changes: -CIPR-278 PO; -FLUP10 PO; +FLUP10TA28 PO; -TRIH5TAB2 PO; +TRIH5TAB4 PO
[2022-11-16] MEDS ORDERED: ZOLPIDEM TARTRATE 10 MG TABLET PO PRN (22:45)
[2022-11-16] MEDS ORDERED: HALOPERIDOL 5 MG TABLET PO PRN (22:45)
[2022-11-16 23:16] LABS: GLUCOMETER DEV NAME(LOC) POC.BV
[2022-11-17 00:40] VITALS: BP 147/62
[2022-11-17] MEDS ORDERED: INFLUENZA VIRUS VACCINE QVS 2022-23 (6MO+)/PF 60 MCG/0.5 ML SYRINGE IM. ONE (02:45)
[2022-11-17 07:14] LABS: BASOPHILS % (AUTO) 0.7 % (0.0-2.0); EOSINOPHILS % (AUTO) 3.6 % (1.0-6.0); HEMATOCRIT 40.5 % (41-53); HEMOGLOBIN 13.8 g/dL (13.5-17.5); LYMPHOCYTES # (AUTO) 2.9 K/uL (1.0-4.8); LYMPHOCYTES % (AUTO) 46.5 % (22.0-44.0); MEAN CORPUSCULAR HEMOGLOBIN 29.9 pg (26.0-34.0); MEAN CORPUSCULAR VOLUME 88 fL (80-100); MONOCYTES # (AUTO) 0.3 K/uL (0.1-1.0); MONOCYTES % (AUTO) 5.5 % (2.0-9.0); NEUTROPHILS # (AUTO) 2.7 K/uL (1.8-7.7); NEUTROPHILS % (AUTO) 43.7 % (40.0-70.0); PLATELET COUNT (AUTO) 157 K/uL (150-450); RED BLOOD CELL COUNT(AUTO) 4.61 MIL/uL (4.50-5.90); RED CELL DISTRIBUTION WIDTH 12.9 % (11.5-14.5)
[2022-11-17 07:23] LABS: HEMOGLOBIN A1C 5.7 % (3.8-5.6)
[2022-11-17 07:46] LABS: ALANINE AMINOTRANSFERASE 21 U/L (12-78); ALBUMIN 3.8 g/dL (3.4-5.0); ALKALINE PHOSPHATASE 87 U/L (46-116); ANION GAP 5 mmol/L (8-16); ASPARTATE AMINOTRANSFERASE 19 U/L (15-37); BILIRUBIN,TOTAL 0.2 mg/dL (0.1-1.0); CARBON DIOXIDE 31 mmol/L (22-29); CHLORIDE 106 mmol/L (98-107); CHOL/HDL RATIO 3.2 (4.2-7.3); CHOLESTEROL 188 mg/dL (131-200); CREATININE 0.91 mg/dL (0.60-1.30); FREE T4 (FREE THYROXINE) 1.15 ng/dL (0.76-1.46); GLOMERULAR FILTR. RATE CALC > 60 mL/min (>60); GLUCOSE,RANDOM 92 mg/dL (70-110); HDL CHOLESTEROL 58 mg/dL (40-60); LDL CHOL (CALC.) 120 mg/dL (0-130); SODIUM SERUM 142 mmol/L (136-145); THYROID STIMULATING HORMONE 1.77 uIU/mL (0.36-3.74); TOTAL PROTEIN, SERUM 6.8 g/dL (6.4-8.2); TRIGLYCERIDES 52 mg/dL (15-150); UREA NITROGEN, BLOOD 17 mg/dL (7-18)
[2022-11-17 08:37] VITALS: BP 123/75
[2022-11-17] MEDS ORDERED: LORazepam 2 MG/ML VIAL ONE (10:56)
[2022-11-17] MEDS ORDERED: DiphenhydrAMINE HCL 50 MG/ML VIAL ONE (10:56)
[2022-11-17] MEDS ORDERED: HALOPERIDOL LACTATE 5 MG/ML VIAL ONE (10:56)
[2022-11-17] MEDS ORDERED: LORazepam 2 MG/ML VIAL IM ONE (11:00)
[2022-11-17] MEDS ORDERED: DiphenhydrAMINE HCL 50 MG/ML VIAL IM ONE (11:00)
[2022-11-17] MEDS ORDERED: HALOPERIDOL LACTATE 5 MG/ML VIAL IM ONE (11:00)
[2022-11-17] MEDS ORDERED: NICOTINE 14 MG/24 HOUR PATCH TD PRN (16:45)
[2022-11-17] MEDS ORDERED: MAGNESIUM HYDROXIDE SUSPENSION 30 ML UDCUP PO PRN (16:45)
[2022-11-17] MEDS ORDERED: GuaiFENesin/D-METHORPHAN [SUGAR-FREE] 200-20MG/10 ML SYRUP UDCUP PO PRN (16:45)
[2022-11-17] MEDS ORDERED: LOPERAMIDE HCL 2 MG CAPSULE PO PRN (16:45)
[2022-11-17] MEDS ORDERED: PETROLATUM,WHITE 28 GM JELLY TP PRN (16:45)
[2022-11-17] MEDS ORDERED: DOCUSATE SODIUM 100 MG CAPSULE PO PRN (16:45)
[2022-11-17] MEDS ORDERED: ONDANSETRON HCL 4 MG TABLET PO PRN (16:45)
[2022-11-17] MEDS ORDERED: MAG HYDROX/AL HYDROX/SIMETH ES 30 ML SUSPENSION UDCUP PO PRN (16:45)
[2022-11-17] MEDS ORDERED: IBUPROFEN 400 MG TABLET PO PRN (16:45)
[2022-11-17] MEDS ORDERED: ALBUTEROL SULFATE HFA 90 MCG/PUFF 8 GM INHALER IH PRN (16:45)
[2022-11-17] MEDS ORDERED: CloNIDine HCL 0.1 MG TABLET PO PRN (16:45)
[2022-11-17] MEDS ORDERED: ACETAMINOPHEN 325 MG TABLET PO PRN (16:45)
[2022-11-17] MEDS: TRIHEXYPHENIDYL HCL 5 MG TABLET PO SCH (16:52)
[2022-11-17] MEDS: LORazepam 2 MG TABLET PO PRN (16:52)
[2022-11-17 20:19] VITALS: BP 120/72
[2022-11-17] MEDS: FluPHENAZine HCL 10 MG TABLET PO SCH (20:50)
[2022-11-18 08:10] VITALS: BP 109/60
[2022-11-18] MEDS: TRIHEXYPHENIDYL HCL 5 MG TABLET PO SCH ×2 (08:29→20:37)
[2022-11-18] MEDS: LORazepam 2 MG TABLET PO PRN (08:29)
[2022-11-18] MEDS: FluPHENAZine HCL 10 MG TABLET PO SCH (20:37)
[2022-11-18 22:15] VITALS: BP 109/64
[2022-11-19 07:39] LABS: APPEARANCE,URINE CLEAR (CLEAR); BILIRUBIN,URINE NEGATIVE (NEGATIVE); GLUCOSE, URINE (UA) NEGATIVE (NEGATIVE); KETONES,URINE NEGATIVE (NEGATIVE); LEUKOCYTE ESTERASE ,URINE NEGATIVE (NEGATIVE); NITRATE,URINE NEGATIVE (NEGATIVE); OCCULT BLOOD,URINE NEGATIVE (NEGATIVE); PH,URINE 6.5 (5.0-8.0); PROTEIN,URINE TRACE mg/dL (NEGATIVE); SPECIFIC GRAVITIY, URINE 1.028 (1.003-1.030); UROBILINOGEN,URINE <=1.0 mg/dL (<=1.0)
[2022-11-19 07:51] LABS: AMPHET/METH SCREEN,URINE NEGATIVE (NEGATIVE); BARBITURATE SCREEN, URINE NEGATIVE (NEGATIVE); BENZODIAZEPINES SCREEN,URINE NEGATIVE (NEGATIVE); CANNABINOID SCREEN,URINE NEGATIVE (NEGATIVE); COCAINE SCREEN,URINE NEGATIVE (NEGATIVE); METHADONE SCREEN, URINE NEGATIVE (NEGATIVE); OPIATE SCREEN,URINE NEGATIVE (NEGATIVE); PHENCYCLIDINE SCREEN,URINE NEGATIVE (NEGATIVE)
[2022-11-19] MEDS: TRIHEXYPHENIDYL HCL 5 MG TABLET PO SCH (08:08)
[2022-11-19] MEDS ORDERED: TRIH5TAB3 PO (08:37)
[2022-11-19] MEDS ORDERED: FLUP10TA28 PO (08:37)
[2022-11-19 08:41] VITALS: BP 108/60
[2022-11-19 11:06] LABS: BACTERIA,URINE None Seen /HPF (None Seen); CALCIUM OXALATE CRYSTALS,UR Few /LPF (None Seen); RBC,URINE None Seen /HPF (0-2); SQUAMOUS EPITHELIAL CELL,UR None Seen /LPF (None Seen); WBC,URINE None Seen /HPF (0-5)
== END 2022-11-19 11:05 | disposition home or self-care (01) | DRG 750 ==
LOC: B2S 22:34 → B3A 11-17 11:00
PROVIDERS: ADMIT Psychiatry & Neurology Psychiatry; ATTEND Psychiatry & Neurology Psychiatry
DX: F25.0 Schizoaffective disorder, bipolar type (principal); R45.851 Suicidal ideations; G40.89 Other seizures; Z20.822 Contact with and (suspected) exposure to COVID-19; F19.10 Other psychoactive substance abuse, uncomplicated; F10.10 Alcohol abuse, uncomplicated; F41.9 Anxiety disorder, unspecified; J44.9 Chronic obstructive pulmonary disease, unspecified; K21.9 Gastro-esophageal reflux disease without esophagitis; Z91.51 Personal history of suicidal behavior; Z28.21 Immunization not carried out because of patient refusal; Z79.899 Other long term (current) drug therapy
CPT/HCPCS: 80053; 80061; 80307; 81001; 83036; 84439; 84443; 85025; J1200; J1630; J2060

== ENCOUNTER 2024-10-16 13:38 | Inpatient (IN) | payer MEDICAID ==
[~2024-10-16] VITALS: Ht 185.4 cm; Wt 78.9 kg
[~2024-10-16 13:38] MED LIST changes: +TRIH5TAB3 PO; -TRIH5TAB4 PO
[2024-10-16] MEDS ORDERED: HALOPERIDOL 5 MG TABLET PO PRN (14:30)
[2024-10-16 16:40] LABS: GLUCOMETER DEV NAME(LOC) POC.BV; POC SARS-COV2 AG, FIA NEGATIVE (NEGATIVE)
[2024-10-16 17:32] VITALS: BP 115/82; PULSE 76; RESP 17; TEMP 97.4; O2SAT 98
[2024-10-16] MEDS ORDERED: GuaiFENesin/D-METHORPHAN [SUGAR-FREE] 200-20MG/10 ML SYRUP UDCUP PO PRN (20:00)
[2024-10-16] MEDS ORDERED: LOPERAMIDE HCL 2 MG CAPSULE PO PRN (20:00)
[2024-10-16] MEDS ORDERED: DOCUSATE SODIUM 100 MG CAPSULE PO PRN (20:00)
[2024-10-16] MEDS ORDERED: IBUPROFEN 400 MG TABLET PO PRN (20:00)
[2024-10-16] MEDS ORDERED: CloNIDine HCL 0.1 MG TABLET PO PRN (20:00)
[2024-10-16] MEDS ORDERED: NICOTINE 14 MG/24 HOUR PATCH TD PRN (20:00)
[2024-10-16] MEDS ORDERED: ALBUTEROL SULFATE HFA 90 MCG/PUFF 8 GM INHALER IH PRN (20:00)
[2024-10-16] MEDS ORDERED: MAGNESIUM HYDROXIDE SUSPENSION 30 ML UDCUP PO PRN (20:00)
[2024-10-16] MEDS ORDERED: ACETAMINOPHEN 325 MG TABLET PO PRN (20:00)
[2024-10-16] MEDS ORDERED: ONDANSETRON 4 MG TABLET PO PRN (20:00)
[2024-10-16] MEDS ORDERED: MAG HYDROX/ALUMINUM HYD/SIMETH ES 30 ML SUSPENSION UDCUP PO PRN (20:00)
[2024-10-16] MEDS ORDERED: PETROLATUM,WHITE 28 GM JELLY TP PRN (20:00)
[2024-10-16] MEDS: ZOLPIDEM TARTRATE 10 MG TABLET PO PRN (20:57)
[2024-10-16] MEDS: LORazepam 2 MG TABLET PO PRN (20:57)
[2024-10-17 00:59] VITALS: RESP 16
[2024-10-17 08:26] VITALS: BP 115/60; PULSE 75; RESP 16; TEMP 97.5; O2SAT 100
[2024-10-17] MEDS: TRIHEXYPHENIDYL HCL 5 MG TABLET PO SCH (16:10)
[2024-10-17 20:00] VITALS: BP 124/87; PULSE 71; RESP 16; TEMP 98.1; O2SAT 97
[2024-10-17] MEDS: FluPHENAZine HCL 10 MG TABLET PO SCH (21:07)
[2024-10-18 08:03] VITALS: BP 127/85; PULSE 70; RESP 17; TEMP 97.6; O2SAT 100
[2024-10-18 08:58] LABS: BASOPHILS % (AUTO) 0.7 % (0.0-2.0); EOSINOPHILS % (AUTO) 4.4 % (1.0-6.0); HEMATOCRIT 40.9 % (41-53); HEMOGLOBIN 13.4 g/dL (13.5-17.5); LYMPHOCYTES % (AUTO) 39.9 % (22.0-44.0); MEAN CORPUSCULAR HEMOGLOBIN 29.7 pg (26.0-34.0); MEAN CORPUSCULAR HGB CONC 32.7 G/dL (31.0-37.0); MEAN CORPUSCULAR VOLUME 91 fL (80-100); MONOCYTES # (AUTO) 0.3 K/uL (0.1-1.0); MONOCYTES % (AUTO) 6.4 % (2.0-9.0); NEUTROPHILS # (AUTO) 2.5 K/uL (1.8-7.7); NEUTROPHILS % (AUTO) 48.6 % (40.0-70.0); PLATELET COUNT (AUTO) 161 K/uL (150-450); RED BLOOD CELL COUNT(AUTO) 4.51 MIL/uL (4.50-5.90); WHITE BLOOD COUNT (AUTO) 5.1 K/uL (4.5-11.0)
[2024-10-18 09:10] LABS: APPEARANCE,URINE TURBID (CLEAR); BILIRUBIN,URINE NEGATIVE (NEGATIVE); COLOR,URINE YELLOW (YELLOW); GLUCOSE, URINE (UA) NEGATIVE (NEGATIVE); KETONES,URINE NEGATIVE (NEGATIVE); LEUKOCYTE ESTERASE ,URINE NEGATIVE (NEGATIVE); NITRATE,URINE NEGATIVE (NEGATIVE); OCCULT BLOOD,URINE NEGATIVE (NEGATIVE); PH,URINE 5.5 (5.0-8.0); PH,URINE DRUG SCREEN 5.5 (5.0-8.0); PROTEIN,URINE NEGATIVE (NEGATIVE); SPECIFIC GRAVITIY, URINE 1.028 (1.003-1.030); UROBILINOGEN,URINE <=1.0 mg/dL (<=1.0)
[2024-10-18 09:20] LABS: ALCOHOL, URINE DRUG SCREEN NEGATIVE (NEGATIVE); AMPHET/METH SCREEN,URINE NEGATIVE (NEGATIVE); BARBITURATE SCREEN, URINE NEGATIVE (NEGATIVE); BENZODIAZEPINES SCREEN,URINE NEGATIVE (NEGATIVE); CANNABINOID SCREEN,URINE NEGATIVE (NEGATIVE); COCAINE SCREEN,URINE NEGATIVE (NEGATIVE); METHADONE SCREEN, URINE NEGATIVE (NEGATIVE); OPIATE SCREEN,URINE NEGATIVE (NEGATIVE); PHENCYCLIDINE SCREEN,URINE NEGATIVE (NEGATIVE)
[2024-10-18 20:08] VITALS: BP 121/87; PULSE 76; RESP 16; TEMP 98.5; O2SAT 96
[2024-10-19 08:19] VITALS: RESP 15
[2024-10-19] MEDS ORDERED: TRIH5TAB3 PO (08:58)
== END 2024-10-19 11:40 | disposition home or self-care (01) | DRG 750 ==
LOC: B2S 14:23 → B3A 16:15
PROVIDERS: ADMIT Psychiatry & Neurology Psychiatry; ATTEND Psychiatry & Neurology Psychiatry
PROC: GZHZZZZ Group Psychotherapy (ICD-10-PCS; principal; 2024-10-17)
DX: F20.0 Paranoid schizophrenia (principal); J44.1 Chronic obstructive pulmonary disease with (acute) exacerbation; R56.9 Unspecified convulsions; R45.851 Suicidal ideations; Z20.822 Contact with and (suspected) exposure to COVID-19; F19.10 Other psychoactive substance abuse, uncomplicated; K21.9 Gastro-esophageal reflux disease without esophagitis; Y90.9 Presence of alcohol in blood, level not specified; Z59.00 Homelessness unspecified; Z91.52 Personal history of nonsuicidal self-harm; F10.90 Alcohol use, unspecified, uncomplicated
CPT/HCPCS: 80307; 81003; 85025; Q0162

== ENCOUNTER 2025-01-23 20:49 | Inpatient (IN) | payer MEDICAID ==
[~2025-01-23] VITALS: Ht 185.4 cm; Wt 78.0 kg
[~2025-01-23 20:49] MED LIST changes: -TRIH5TAB3 PO; +TRIH5TAB4 PO
[2025-01-23] MEDS ORDERED: haloperidoL 5 MG TABLET PO PRN (22:30)
[2025-01-23] MEDS ORDERED: ZOLPIDEM TARTRATE 10 MG TABLET PO PRN (22:30)
[2025-01-23 22:40] LABS: GLUCOMETER DEV NAME(LOC) POC.BV; POC SARS-COV2 AG, FIA NEGATIVE (NEGATIVE)
[2025-01-23 23:09] VITALS: BP 139/81; PULSE 83; RESP 16; TEMP 98.5; O2SAT 97
[2025-01-24 08:55] LABS: APPEARANCE,URINE TURBID (CLEAR); BILIRUBIN,URINE NEGATIVE (NEGATIVE); COLOR,URINE LIGHT ORANGE (YELLOW); GLUCOSE, URINE (UA) NEGATIVE (NEGATIVE); KETONES,URINE NEGATIVE (NEGATIVE); LEUKOCYTE ESTERASE ,URINE NEGATIVE (NEGATIVE); NITRATE,URINE NEGATIVE (NEGATIVE); OCCULT BLOOD,URINE NEGATIVE (NEGATIVE); PH,URINE 5.5 (5.0-8.0); PH,URINE DRUG SCREEN 5.5 (5.0-8.0); PROTEIN,URINE TRACE mg/dL (NEGATIVE); SPECIFIC GRAVITIY, URINE 1.031 (1.003-1.030); UROBILINOGEN,URINE <=1.0 mg/dL (<=1.0)
[2025-01-24 09:05] LABS: ALCOHOL, URINE DRUG SCREEN NEGATIVE (NEGATIVE); AMPHET/METH SCREEN,URINE NEGATIVE (NEGATIVE); BARBITURATE SCREEN, URINE NEGATIVE (NEGATIVE); BENZODIAZEPINES SCREEN,URINE NEGATIVE (NEGATIVE); CANNABINOID SCREEN,URINE NEGATIVE (NEGATIVE); COCAINE SCREEN,URINE NEGATIVE (NEGATIVE); METHADONE SCREEN, URINE NEGATIVE (NEGATIVE); OPIATE SCREEN,URINE NEGATIVE (NEGATIVE); PHENCYCLIDINE SCREEN,URINE NEGATIVE (NEGATIVE)
[2025-01-24 09:35] VITALS: BP 137/72; PULSE 73; RESP 16; TEMP 98.2; O2SAT 100
[2025-01-24] MEDS: TRIHEXYPHENIDYL HCL 5 MG TABLET PO SCH (11:19)
[2025-01-24] MEDS: FluPHENAZine HCL 10 MG TABLET PO SCH (11:19)
[2025-01-24] MEDS ORDERED: CloNIDine HCL 0.1 MG TABLET PO PRN (14:00)
[2025-01-24] MEDS ORDERED: PETROLATUM,WHITE 28 GM JELLY TP PRN (14:00)
[2025-01-24] MEDS ORDERED: GuaiFENesin/D-METHORPHAN [SUGAR-FREE] 200-20MG/10 ML SYRUP UDCUP PO PRN (14:00)
[2025-01-24] MEDS ORDERED: ALBUTEROL SULFATE HFA 90 MCG/PUFF 8 GM INHALER IH PRN (14:00)
[2025-01-24] MEDS ORDERED: NICOTINE 14 MG/24 HOUR PATCH TD PRN (14:00)
[2025-01-24] MEDS ORDERED: LOPERAMIDE HCL 2 MG CAPSULE PO PRN (14:00)
[2025-01-24] MEDS ORDERED: ONDANSETRON 4 MG TABLET PO PRN (14:00)
[2025-01-24] MEDS ORDERED: ACETAMINOPHEN 325 MG TABLET PO PRN (14:00)
[2025-01-24] MEDS: DOCUSATE SODIUM 100 MG CAPSULE PO PRN (15:28)
[2025-01-24] MEDS: MAG HYDROX/ALUMINUM HYD/SIMETH ES 30 ML SUSPENSION UDCUP PO PRN (20:17)
[2025-01-24] MEDS: IBUPROFEN 400 MG TABLET PO PRN (20:17)
[2025-01-24] MEDS: MAGNESIUM HYDROXIDE SUSPENSION 30 ML UDCUP PO PRN (20:17)
[2025-01-24 20:19] VITALS: BP 139/68; PULSE 61; RESP 19; TEMP 98.6; O2SAT 95
[2025-01-25 08:24] VITALS: RESP 18
[2025-01-25 20:12] VITALS: BP 122/71; PULSE 60; RESP 18; TEMP 98.6; O2SAT 99
[2025-01-26 09:08] VITALS: BP 107/56; PULSE 60; RESP 18; TEMP 97.7; O2SAT 100
[2025-01-26 10:32] VITALS: RESP 18
[2025-01-26 11:32] VITALS: RESP 17
[2025-01-26 20:00] VITALS: RESP 19
[2025-01-26 21:52] VITALS: RESP 18
[2025-01-26 22:52] VITALS: RESP 17
[2025-01-27] MEDS: LORazepam 2 MG TABLET PO PRN (07:37)
[2025-01-27 08:31] LABS: BASOPHILS % (AUTO) 0.7 % (0.0-2.0); EOSINOPHILS % (AUTO) 6.9 % (1.0-6.0); HEMATOCRIT 41.3 % (41-53); HEMOGLOBIN 13.7 g/dL (13.5-17.5); LYMPHOCYTES # (AUTO) 2.1 K/uL (1.0-4.8); LYMPHOCYTES % (AUTO) 41.9 % (22.0-44.0); MEAN CORPUSCULAR HEMOGLOBIN 29.3 pg (26.0-34.0); MEAN CORPUSCULAR HGB CONC 33.2 G/dL (31.0-37.0); MEAN CORPUSCULAR VOLUME 88 fL (80-100); MONOCYTES # (AUTO) 0.3 K/uL (0.1-1.0); MONOCYTES % (AUTO) 5.7 % (2.0-9.0); NEUTROPHILS # (AUTO) 2.2 K/uL (1.8-7.7); NEUTROPHILS % (AUTO) 44.8 % (40.0-70.0); PLATELET COUNT (AUTO) 178 K/uL (150-450); RED BLOOD CELL COUNT(AUTO) 4.67 MIL/uL (4.50-5.90); RED CELL DISTRIBUTION WIDTH 13.1 % (11.5-14.5); WHITE BLOOD COUNT (AUTO) 4.9 K/uL (4.5-11.0)
[2025-01-27 08:44] LABS: HEMOGLOBIN A1C 5.5 % (3.8-5.6)
[2025-01-27 09:01] LABS: ALANINE AMINOTRANSFERASE 24 U/L (12-78); ALBUMIN 3.3 g/dL (3.4-5.0); ALKALINE PHOSPHATASE 80 U/L (46-116); ANION GAP 4 mmol/L (8-16); ASPARTATE AMINOTRANSFERASE 25 U/L (15-37); BILIRUBIN,TOTAL 0.6 mg/dL (0.1-1.0); CALCIUM, TOTAL 8.7 mg/dL (8.8-10.5); CARBON DIOXIDE 31 mmol/L (22-29); CHLORIDE 106 mmol/L (98-107); CHOL/HDL RATIO 2.6 (4.2-7.3); CHOLESTEROL 176 mg/dL (131-200); CREATININE 0.82 mg/dL (0.60-1.30); GLOMERULAR FILTR. RATE CALC > 60 mL/min (>60); GLUCOSE,RANDOM 74 mg/dL (70-110); HDL CHOLESTEROL 67 mg/dL (40-60); LDL CHOL (CALC.) 97 mg/dL (0-130); POTASSIUM 4.2 mmol/L (3.5-5.1); SODIUM SERUM 141 mmol/L (136-145); THYROID STIMULATING HORMONE 1.32 uIU/mL (0.36-3.74); TOTAL PROTEIN, SERUM 6.4 g/dL (6.4-8.2); TRIGLYCERIDES 61 mg/dL (15-150); UREA NITROGEN, BLOOD 11 mg/dL (7-18)
[2025-01-27 09:08] VITALS: BP 125/66; PULSE 64; RESP 18; TEMP 97.3; O2SAT 99
[2025-01-27] MEDS: FluPHENAZine HCL 10 MG TABLET PO SCH (21:24)
[2025-01-27] MEDS: TERBINAFINE HCL 1% 30 GM CREAM TP PRN (22:25)
[2025-01-28 09:25] VITALS: BP 115/73; PULSE 85; RESP 18; TEMP 98.3; O2SAT 99
[2025-01-28 20:46] VITALS: BP 111/56; PULSE 60; RESP 16; TEMP 97.7; O2SAT 99
[2025-01-28 21:15] VITALS: RESP 18
[2025-01-29 08:18] VITALS: BP 120/68; PULSE 82; RESP 18; TEMP 98.2; O2SAT 98
[2025-01-29 13:57] VITALS: RESP 18
[2025-01-29 14:57] VITALS: RESP 17
[2025-01-29 20:26] VITALS: BP 83/64; PULSE 64; RESP 18; TEMP 98
[2025-01-30 08:30] VITALS: BP 112/67; PULSE 65; RESP 16; TEMP 97; O2SAT 100
[2025-01-30 20:54] VITALS: RESP 16
[2025-01-31 08:53] VITALS: RESP 18
[2025-01-31 20:41] VITALS: RESP 18
[2025-02-01 09:00] VITALS: RESP 18
[2025-02-01 09:24] VITALS: BP 104/57; PULSE 61; RESP 18; TEMP 97.7; O2SAT 98
[2025-02-01 10:00] VITALS: RESP 18
[2025-02-01 20:39] VITALS: BP 107/78; PULSE 73; RESP 16; TEMP 97.5; O2SAT 96
[2025-02-01 20:45] VITALS: RESP 18
[2025-02-02 09:53] VITALS: BP 97/50; PULSE 65; RESP 18; TEMP 97.5
[2025-02-02] MEDS ORDERED: FLUP10TA28 PO (16:12)
[2025-02-02] MEDS ORDERED: TRIH5TAB3 PO (16:12)
== END 2025-02-02 18:26 | disposition home or self-care (01) | DRG 750 ==
LOC: B3A 22:19
PROVIDERS: ADMIT Psychiatry & Neurology Child & Adolescent Psychiatry; ATTEND Psychiatry & Neurology Child & Adolescent Psychiatry
PROC: GZHZZZZ Group Psychotherapy (ICD-10-PCS; principal; 2025-01-24)
PROC: GZ56ZZZ Individual Psychotherapy, Supportive (ICD-10-PCS; 2025-01-24)
PROC: GZ58ZZZ Individual Psychotherapy, Cognitive-Behavioral (ICD-10-PCS; 2025-01-24)
DX: F25.0 Schizoaffective disorder, bipolar type (principal); R45.851 Suicidal ideations; K74.60 Unspecified cirrhosis of liver; F10.10 Alcohol abuse, uncomplicated; Z20.822 Contact with and (suspected) exposure to COVID-19; J44.9 Chronic obstructive pulmonary disease, unspecified; R33.9 Retention of urine, unspecified; F41.9 Anxiety disorder, unspecified; Y90.9 Presence of alcohol in blood, level not specified; M19.90 Unspecified osteoarthritis, unspecified site; F19.10 Other psychoactive substance abuse, uncomplicated; Z79.899 Other long term (current) drug therapy
CPT/HCPCS: 80053; 80061; 80307; 81003; 83036; 84443; 85025

== ENCOUNTER 2025-02-07 20:47 | Inpatient (IN) | payer MEDICAID, OTHER ==
[~2025-02-07] VITALS: Ht 182.9 cm; Wt 77.1 kg
[~2025-02-07 20:47] MED LIST changes: +TRIH5TAB3 PO; -TRIH5TAB4 PO
[2025-02-07 22:53] LABS: COVID AG,FIA SOURCE NASAL SWAB
[2025-02-07 23:17] LABS: SARS-COV2 (COVID) ANTIGEN,FIA Negative (Negative)
[2025-02-07 23:25] LABS: PH,URINE DRUG SCREEN 5.5 (5.0-8.0)
[2025-02-07 23:28] LABS: ALCOHOL, URINE DRUG SCREEN NEGATIVE (NEGATIVE); AMPHET/METH SCREEN,URINE NEGATIVE (NEGATIVE); BARBITURATE SCREEN, URINE NEGATIVE (NEGATIVE); BENZODIAZEPINES SCREEN,URINE NEGATIVE (NEGATIVE); CANNABINOID SCREEN,URINE POSITIVE (NEGATIVE); COCAINE SCREEN,URINE NEGATIVE (NEGATIVE); METHADONE SCREEN, URINE NEGATIVE (NEGATIVE); OPIATE SCREEN,URINE NEGATIVE (NEGATIVE); PHENCYCLIDINE SCREEN,URINE NEGATIVE (NEGATIVE)
[2025-02-08] MEDS ORDERED: ZOLPIDEM TARTRATE 10 MG TABLET PO PRN (02:00)
[2025-02-08] MEDS ORDERED: haloperidoL 5 MG TABLET PO PRN (02:00)
[2025-02-08 02:19] VITALS: O2SAT 100
[2025-02-08 03:48] VITALS: BP 111/76; PULSE 66; RESP 18; TEMP 97.9
[2025-02-08] MEDS ORDERED: NICOTINE 14 MG/24 HOUR PATCH TD PRN (07:45)
[2025-02-08] MEDS ORDERED: ALBUTEROL SULFATE HFA 90 MCG/PUFF 8 GM INHALER IH PRN (07:45)
[2025-02-08] MEDS ORDERED: LOPERAMIDE HCL 2 MG CAPSULE PO PRN (07:45)
[2025-02-08] MEDS ORDERED: ONDANSETRON 4 MG TABLET PO PRN (07:45)
[2025-02-08] MEDS ORDERED: GuaiFENesin/D-METHORPHAN [SUGAR-FREE] 200-20MG/10 ML SYRUP UDCUP PO PRN (07:45)
[2025-02-08] MEDS ORDERED: PETROLATUM,WHITE 28 GM JELLY TP PRN (07:45)
[2025-02-08] MEDS ORDERED: CloNIDine HCL 0.1 MG TABLET PO PRN (07:45)
[2025-02-08] MEDS ORDERED: ACETAMINOPHEN 325 MG TABLET PO PRN (07:45)
[2025-02-08] MEDS: TRIHEXYPHENIDYL HCL 5 MG TABLET PO SCH (11:08)
[2025-02-08] MEDS: FluPHENAZine HCL 10 MG TABLET PO SCH (11:09)
[2025-02-08] MEDS: LORazepam 2 MG TABLET PO PRN (14:49)
[2025-02-08] MEDS: PNEUMOCOCCAL VACCINE POLYVALENT 0.5 ML SYRINGE [PPSV23] IM. ONE (14:51)
[2025-02-08 15:33] VITALS: BP 124/92; PULSE 63; RESP 18; TEMP 97.9
[2025-02-08 21:14] VITALS: RESP 16
[2025-02-09 09:38] VITALS: BP 110/64; PULSE 67; RESP 17; TEMP 97.6
[2025-02-09] MEDS: DOCUSATE SODIUM 100 MG CAPSULE PO PRN (14:31)
[2025-02-09] MEDS: MAG HYDROX/ALUMINUM HYD/SIMETH ES 30 ML SUSPENSION UDCUP PO PRN (14:31)
[2025-02-09 20:01] VITALS: BP 105/69; PULSE 72; RESP 17; TEMP 97.7
[2025-02-10 08:43] VITALS: BP 117/64; PULSE 98; RESP 18; TEMP 98.2; O2SAT 99
[2025-02-10] MEDS: MULTIVITAMINS WITH MINERALS, THERAPEUTIC TABLET PO SCH (08:45)
[2025-02-10 09:00] LABS: CHOL/HDL RATIO 2.7 (4.2-7.3); FREE T4 (FREE THYROXINE) 0.79 ng/dL (0.76-1.46); THYROID STIMULATING HORMONE 1.36 uIU/mL (0.36-3.74)
[2025-02-10 09:02] LABS: APPEARANCE,URINE CLEAR (CLEAR); BILIRUBIN,URINE NEGATIVE (NEGATIVE); COLOR,URINE LIGHT YELLOW (YELLOW); GLUCOSE, URINE (UA) NEGATIVE (NEGATIVE); LEUKOCYTE ESTERASE ,URINE NEGATIVE (NEGATIVE); NITRATE,URINE NEGATIVE (NEGATIVE); OCCULT BLOOD,URINE NEGATIVE (NEGATIVE); PROTEIN,URINE NEGATIVE (NEGATIVE); SPECIFIC GRAVITIY, URINE 1.011 (1.003-1.030); UROBILINOGEN,URINE <=1.0 mg/dL (<=1.0)
[2025-02-10 09:13] LABS: ALCOHOL, URINE DRUG SCREEN NEGATIVE (NEGATIVE); AMPHET/METH SCREEN,URINE NEGATIVE (NEGATIVE); BARBITURATE SCREEN, URINE NEGATIVE (NEGATIVE); BENZODIAZEPINES SCREEN,URINE NEGATIVE (NEGATIVE); CANNABINOID SCREEN,URINE NEGATIVE (NEGATIVE); COCAINE SCREEN,URINE NEGATIVE (NEGATIVE); METHADONE SCREEN, URINE NEGATIVE (NEGATIVE); OPIATE SCREEN,URINE NEGATIVE (NEGATIVE); PHENCYCLIDINE SCREEN,URINE NEGATIVE (NEGATIVE)
[2025-02-10 20:14] VITALS: RESP 18
[2025-02-10] MEDS: IBUPROFEN 400 MG TABLET PO PRN (20:31)
[2025-02-11 08:10] VITALS: BP 124/71; PULSE 93; RESP 18; TEMP 97.6; O2SAT 89
[2025-02-11 10:11] LABS: BASOPHILS % (AUTO) 0.8 % (0.0-2.0); EOSINOPHILS % (AUTO) 5.7 % (1.0-6.0); HEMATOCRIT 40.3 % (41-53); HEMOGLOBIN 13.5 g/dL (13.5-17.5); LYMPHOCYTES # (AUTO) 1.6 K/uL (1.0-4.8); LYMPHOCYTES % (AUTO) 32.5 % (22.0-44.0); MEAN CORPUSCULAR HEMOGLOBIN 29.8 pg (26.0-34.0); MEAN CORPUSCULAR HGB CONC 33.5 G/dL (31.0-37.0); MEAN CORPUSCULAR VOLUME 89 fL (80-100); MONOCYTES # (AUTO) 0.4 K/uL (0.1-1.0); MONOCYTES % (AUTO) 7.9 % (2.0-9.0); NEUTROPHILS # (AUTO) 2.6 K/uL (1.8-7.7); NEUTROPHILS % (AUTO) 53.1 % (40.0-70.0); PLATELET COUNT (AUTO) 171 K/uL (150-450); RED BLOOD CELL COUNT(AUTO) 4.53 MIL/uL (4.50-5.90); RED CELL DISTRIBUTION WIDTH 13.3 % (11.5-14.5); WHITE BLOOD COUNT (AUTO) 4.9 K/uL (4.5-11.0)
[2025-02-11 10:18] LABS: ANION GAP 2 mmol/L (8-16); CALCIUM, TOTAL 8.6 mg/dL (8.8-10.5); CARBON DIOXIDE 33 mmol/L (22-29); CHLORIDE 108 mmol/L (98-107); GLOMERULAR FILTR. RATE CALC > 60 mL/min (>60); GLUCOSE,RANDOM 70 mg/dL (70-110); POTASSIUM 4.6 mmol/L (3.5-5.1); SODIUM SERUM 142 mmol/L (136-145); UREA NITROGEN, BLOOD 17 mg/dL (7-18)
[2025-02-11 20:30] VITALS: BP 116/68; PULSE 62; RESP 18; TEMP 97.8; O2SAT 97
[2025-02-12 08:51] VITALS: BP 109/74; PULSE 65; RESP 17; TEMP 98; O2SAT 99
[2025-02-12 20:06] VITALS: BP 127/72; PULSE 60; RESP 18; TEMP 97.6; O2SAT 99
[2025-02-13 20:31] VITALS: BP 114/71; PULSE 69; RESP 16; TEMP 97.8; O2SAT 98
[2025-02-14 20:12] VITALS: BP 119/64; PULSE 77; RESP 18; TEMP 97.7; O2SAT 99
[2025-02-15 08:53] VITALS: RESP 18
[2025-02-15 20:07] VITALS: BP 120/66; PULSE 75; RESP 18; TEMP 97.3; O2SAT 100
[2025-02-15 20:55] VITALS: RESP 18
[2025-02-15] MEDS: MAGNESIUM HYDROXIDE SUSPENSION 30 ML UDCUP PO PRN (21:06)
[2025-02-16 08:14] VITALS: BP 115/75; PULSE 99; RESP 18; TEMP 98.2; O2SAT 97
[2025-02-16 09:49] VITALS: RESP 18
[2025-02-16 10:49] VITALS: RESP 18
[2025-02-16 20:29] VITALS: BP 133/88; PULSE 65; RESP 18; TEMP 97.9; O2SAT 98
[2025-02-16 21:00] VITALS: RESP 18
[2025-02-17 08:07] VITALS: BP 115/73; PULSE 96; RESP 18; TEMP 97.5; O2SAT 94
[2025-02-17 20:05] VITALS: RESP 18
[2025-02-18 15:00] VITALS: BP 121/76; PULSE 91; RESP 18; TEMP 97.6
[2025-02-18 20:49] VITALS: RESP 18
[2025-02-19 08:27] VITALS: RESP 18
[2025-02-19 20:28] VITALS: RESP 17
[2025-02-20 08:20] VITALS: RESP 18
[2025-02-20] MEDS: TERBINAFINE HCL 1% 30 GM CREAM TP SCH (08:37)
[2025-02-20 20:14] VITALS: BP 124/83; PULSE 70; RESP 18; TEMP 97.6
[2025-02-21 08:45] VITALS: RESP 18
[2025-02-22 08:34] VITALS: RESP 18
[2025-02-23 08:39] VITALS: RESP 17
[2025-02-23 20:39] VITALS: RESP 17
[2025-02-24 08:37] VITALS: RESP 17
[2025-02-24] MEDS: OLANZapine 5 MG TABLET PO SCH (10:15)
[2025-02-24 20:32] VITALS: RESP 17
[2025-02-25 08:44] VITALS: RESP 17
[2025-02-26 08:17] VITALS: RESP 18
[2025-02-28 08:12] VITALS: RESP 18
[2025-02-28 22:33] VITALS: BP 119/70; PULSE 61; RESP 17; TEMP 97.7; O2SAT 98
[2025-03-01 08:59] VITALS: RESP 18
[2025-03-01 20:19] VITALS: RESP 18
[2025-03-02 08:46] VITALS: O2SAT 18
[2025-03-02 20:35] VITALS: RESP 17
[2025-03-03 09:44] VITALS: RESP 18
[2025-03-03 20:15] VITALS: RESP 18
[2025-03-04 08:39] VITALS: RESP 18
[2025-03-04 20:09] VITALS: RESP 18
[2025-03-05 08:55] VITALS: RESP 18
[2025-03-05 16:14] VITALS: RESP 18
[2025-03-05 17:14] VITALS: RESP 18
[2025-03-05 20:06] VITALS: RESP 18
[2025-03-06 08:36] VITALS: RESP 18
[2025-03-06 20:36] VITALS: RESP 18
[2025-03-07 08:11] VITALS: RESP 17
[2025-03-07 21:14] VITALS: RESP 18
[2025-03-07 23:25] VITALS: RESP 18
[2025-03-08 08:59] VITALS: RESP 18
[2025-03-08 10:50] VITALS: RESP 18
[2025-03-08 12:08] VITALS: RESP 18
[2025-03-09 08:24] VITALS: RESP 17
[2025-03-10 09:05] VITALS: RESP 18
[2025-03-10 09:17] VITALS: BP 115/74; PULSE 78; RESP 18; TEMP 97.6
[2025-03-10 19:32] VITALS: RESP 18
[2025-03-10 20:12] VITALS: RESP 18
[2025-03-11 08:15] VITALS: RESP 18
[2025-03-11 08:26] VITALS: RESP 17
[2025-03-11 09:26] VITALS: RESP 16
[2025-03-11] MEDS ORDERED: OLAN5TAB52 PO (16:01)
== END 2025-03-11 17:00 | disposition left against medical advice (07) | DRG 750 ==
LOC: EMS 20:47 → B3A 02-08 02:33
PROVIDERS: ADMIT Psychiatry & Neurology Psychiatry; ATTEND Psychiatry & Neurology Child & Adolescent Psychiatry
PROC: GZ56ZZZ Individual Psychotherapy, Supportive (ICD-10-PCS; principal; 2025-02-08)
PROC: GZHZZZZ Group Psychotherapy (ICD-10-PCS; 2025-02-08)
DX: F25.1 Schizoaffective disorder, depressive type (principal); E44.0 Moderate protein-calorie malnutrition; R45.851 Suicidal ideations; E55.9 Vitamin D deficiency, unspecified; Z20.822 Contact with and (suspected) exposure to COVID-19; J44.9 Chronic obstructive pulmonary disease, unspecified; K21.9 Gastro-esophageal reflux disease without esophagitis; F12.90 Cannabis use, unspecified, uncomplicated; F15.90 Other stimulant use, unspecified, uncomplicated; G47.00 Insomnia, unspecified; E87.6 Hypokalemia; F41.9 Anxiety disorder, unspecified; Z68.23 Body mass index [BMI] 23.0-23.9, adult; Z53.29 Procedure and treatment not carried out because of patient's decision for other reasons
CPT/HCPCS: 80048; 80061; 80307; 81003; 84439; 84443; 85025; 87081; 99285